=== PATIENT | female | born 1935 | race Caucasian/White ===

== ENCOUNTER 2017-12-09 10:40 | Day surgery (SDC) | payer MEDICARE ==
[~2017-12-09 10:40] MED LIST: Acetaminophen TAB* 325 MG PO PRN; Buffered Lidocaine 0.9% SYRIN* 5 ML/SYR SYRINGE INTRADERM ONE; Cyclopentolate 1% OPTH.SOL* 2 ML BTL ONE; Ketorolac 0.5% OPHTH (NF) 0.5 % 5 ML BTL ONE; Lidocaine 1% MPF* 2 ML VIAL ONE; Neomycin/Polymy/Dex OPHTH.OIN* 3.5 GM ONE; Phenylephr/Ketorolac 1%/0.3% OPH DROP BTL ONE; Phenylephrine 2.5% OPTH.SOL* 2 ML BTL ONE; Tetracaine 0.5% OPTH.SOL 4 ML* 1 DROP BTL ONE; Tropicamide 1% OPTH.SOL* BTL ONE; Trypan Blue 0.06% SOL* 0.5 ML BTL ONE
[2017-12-09] MEDS ORDERED: fentaNYL* 50 MCG/ML 2 ML VIAL (100 MCG VIAL) ONE (11:27)
[2017-12-09] MEDS ORDERED: Propofol* 10 MG/ML 20 ML BTL IV PUSH ONE (11:30)
[2017-12-09] MEDS ORDERED: Lidocaine 2% PF * 5 ML VIAL ONE (11:30)
[2017-12-09 13:10] VITALS: BP 145/85
[2017-12-09] MEDS ORDERED: Phenylephr/Ketorolac 1%/0.3% OPH DROP BTL ONE (14:26)
--- NOTE | 2017-12-10 01:07 | OP ---
DATE OF OPERATION: 12/09/17 - [facility] DATE OF : 35 SURGEON: Stanley Roberts MD STEREOTYPE CASTER: None. ANESTHESIA: Topical with intravenous sedation. PRE-OP DIAGNOSIS: Mature cataract, left eye. POST-OP DIAGNOSIS: Mature cataract, left eye. OPERATIVE PROCEDURE: Phacoemulsification and cataract extraction with posterior chamber intraocular lens implant, left eye. COMPLICATIONS: None. BLOOD LOSS: None. DESCRIPTION OF PROCEDURE: The patient was brought to the operating room and given a small amount of intra-venous sedation. A drop of tetracaine was placed on the surface of the eye. The patient was prepped and draped in the usual sterile fashion for ophthalmic surgery and attention was directed to the left eye where a speculum was placed. Here it was found that, despite appropriate preoperative eye drops, the pupil was not fully dilated. Furthermore, a fairly white dense cataract was noted. Omidria was placed into the irrigation solution. A paracentesis was created at the 5 o'clock position and 0.1 cc of 1 % preservative-free lidocaine was injected into the anterior chamber. This was followed by room air. This was then followed by VisionBlue dye. DisCoVisc was then introduced into the anterior chamber. The eye was digitally stabilized while a 2.75-mm keratome was used to create a triplanar clear corneal incision at the 3 o'clock position. A continuous curvilinear capsulorrhexis was created with a cystotome and Utrata forceps measuring approximately 4.5 mm in diameter and aided by the use of the VisionBlue dye. BSS on a cannula was used to hydrodissect the lens from the capsule. Phacoemulsification was performed in a [id number] technique to create four fragments. A fair amount of energy was needed to break the lens apart. Care was taken to avoid the corneal endothelium during the process. After the 4 fragments were removed, residual cortical material was removed with irrigation and aspiration. DisCoVisc was used to inflate the capsular bag. An AU00T0 14.5 diopter lens was folded and inserted into the capsular bag. Residual viscoelastic was removed with irrigation and aspiration. BSS on a cannula was used to hydrate the corneal stroma and seal the wound. At the end of the case, the pupil was round and measured approximately 4 mm. The eye pressure appeared normal. The wound appeared water tight and the lens was stable. The speculum was removed and topical Maxitrol ointment was placed on the surface of the eye. The eye was closed, patched and shielded and the patient was sent to the recovery room in stable condition with postoperative instructions and a followup appointment given. [id number]/[facility] #: [id number] MTDD
== END 2017-12-09 13:06 | disposition home or self-care (01) ==
LOC: OREAST 10:40
PROVIDERS: ATTEND Ophthalmology
DX: H25.12 Age-related nuclear cataract, left eye (principal); I10 Essential (primary) hypertension; D50.0 Iron deficiency anemia secondary to blood loss (chronic); R00.0 Tachycardia, unspecified; Z87.891 Personal history of nicotine dependence; K21.0 Gastro-esophageal reflux disease with esophagitis; F41.9 Anxiety disorder, unspecified
CPT/HCPCS: A9270-GY; C9447; J2704; J3010; V2632

== ENCOUNTER 2017-12-10 12:57 | Day surgery (SDC) | payer MEDICARE ==
[~2017-12-10 12:57] MED LIST changes: -Acetaminophen TAB* 325 MG PO PRN; -Buffered Lidocaine 0.9% SYRIN* 5 ML/SYR SYRINGE INTRADERM ONE; -Cyclopentolate 1% OPTH.SOL* 2 ML BTL ONE; -Ketorolac 0.5% OPHTH (NF) 0.5 % 5 ML BTL ONE; -Phenylephr/Ketorolac 1%/0.3% OPH DROP BTL ONE; -Phenylephrine 2.5% OPTH.SOL* 2 ML BTL ONE; -Tropicamide 1% OPTH.SOL* BTL ONE; -Trypan Blue 0.06% SOL* 0.5 ML BTL ONE
[2017-12-10] MEDS ORDERED: fentaNYL* 50 MCG/ML 2 ML VIAL (100 MCG VIAL) ONE (14:09)
[2017-12-10] MEDS ORDERED: Propofol* 10 MG/ML 20 ML BTL IV PUSH ONE (14:09)
[2017-12-10] MEDS ORDERED: Lidocaine 2% PF * 5 ML VIAL ONE (14:09)
[2017-12-10] MEDS ORDERED: Buffered Lidocaine 0.9% SYRIN* 5 ML/SYR SYRINGE INTRADERM ONE (14:27)
[2017-12-10 14:42] VITALS: BP 156/80
[2017-12-11] MEDS ORDERED: Acetaminophen TAB* 325 MG PO PRN (05:00)
--- NOTE | 2017-12-11 10:45 | OP ---
DATE OF OPERATION: 12/10/17 [facility] DATE OF : 35 SURGEON: Stanley Roberts MD EMERGENCY DEPARTMENT MANAGER: None. ANESTHESIA: Topical with intravenous sedation. PRE-OP DIAGNOSIS: Retained lens material anterior chamber, left eye. POST-OP DIAGNOSIS: Retained lens material anterior chamber, left eye. OPERATIVE PROCEDURE: Removal of retained lens material anterior chamber, left eye. COMPLICATIONS: None. ESTIMATED BLOOD LOSS: None. OPERATIVE FINDINGS: The patient had successful cataract surgery 1 day prior to today. She returned to the office this morning for routine postoperative check and it was found that there was a small chip of epinuclear material floating in the anterior chamber. After a long discussion with the patient, it was decided it would be more prudent to remove the chip of lens than to try and treat it medically. Thus, she returned to the surgical care billings at my request to meet me for that procedure. DESCRIPTION OF PROCEDURE: The patient was brought into the room and received a very small amount of intra-enous sedation. Her left eye was given a drop of tetracaine and then prepped and draped in the usual sterile fashion for ophthalmic surgery. Attention was directed to the left eye where a speculum was placed. Under the microscope, a small chip of retained lens material was noted floating in the anterior chamber. The original wound was easily opened with blunt dissection using the tip of the phaco probe. The phaco probe was inserted into the anterior chamber and irrigation, aspiration, plus a very small amount of phacoemulsification power was used to remove the chip of lens from the anterior chamber. The phaco probe was removed. Careful inspection under high magnification revealed no further chips of lens. BSS on a cannula was used to hydrate the corneal stroma and seal the wound. At the end of the case, the pupil was round and the lens was centered. The eye pressure was normal and the wound was watertight. A small amount of topical Maxitrol ointment was placed on the surface of the eye. A clear shield was placed over the eye and the patient was awakened uneventfully and sent to recovery room in stable condition with postoperative instructions and followup appointment given. [id number]/[facility] #: [id number] MTDD
== END 2017-12-10 14:58 | disposition home or self-care (01) ==
LOC: OREAST 12:57
PROVIDERS: ATTEND Ophthalmology
DX: H59.022 Cataract (lens) fragments in eye following cataract surgery, left eye (principal); I10 Essential (primary) hypertension; D50.0 Iron deficiency anemia secondary to blood loss (chronic); R00.0 Tachycardia, unspecified; Z87.891 Personal history of nicotine dependence; K21.9 Gastro-esophageal reflux disease without esophagitis; F41.9 Anxiety disorder, unspecified
CPT/HCPCS: A9270-GY; J2704; J3010

== ENCOUNTER → 2017-12-16 11:20 | Day surgery (SDC) | payer MEDICARE ==
[~2017-12-16 11:20] MED LIST changes: +Acetaminophen TAB* 325 MG PO PRN; +Buffered Lidocaine 0.9% SYRIN* 5 ML/SYR SYRINGE INTRADERM ONE; +Cyclopentolate 1% OPTH.SOL* 2 ML BTL ONE; +Ketorolac 0.5% OPHTH (NF) 0.5 % 5 ML BTL ONE; +Midazolam* 1 MG/ML 2 ML VIAL (2 MG) ONE; +Phenylephr/Ketorolac 1%/0.3% OPH DROP BTL ONE; +Phenylephrine 2.5% OPTH.SOL* 2 ML BTL ONE; +Tropicamide 1% OPTH.SOL* BTL ONE; +Trypan Blue 0.06% SOL* 0.5 ML BTL ONE; +fentaNYL* 50 MCG/ML 2 ML VIAL (100 MCG VIAL) ONE
[2017-12-16 13:55] VITALS: BP 136/83
--- NOTE | 2017-12-16 23:41 | OP ---
DATE OF OPERATION: 12/16/17 - [facility] DATE OF : 35 SURGEON: Stanley Roberts MD IAP DISPLAYS ANALYST: None ANESTHESIA: Topical with intravenous sedation. PRE-OP DIAGNOSES: Mature cataract right eye, posterior synechiae right eye. POST-OP DIAGNOSES: Mature cataract right eye, posterior synechiae right eye. OPERATIVE PROCEDURE: Phacoemulsification and cataract extraction with posterior chamber intraocular lens implant and synechiolysis, right eye. COMPLICATIONS: None. BLOOD LOSS: None. DESCRIPTION OF PROCEDURE: The patient was brought to the operating room and given a small amount of intra-venous sedation. A drop of tetracaine was placed into her right eye. The patient was prepped and draped in the usual sterile fashion for ophthalmic surgery and attention was directed to the right eye where a speculum was placed. The pupil was noted to be irregular with posterior synechiae along the nasal aspect. The lens was noted to be a completely mature dense tannish white color. A paracentesis was created at the 11 o'clock position and 0.1 cc of 1% preservative-free lidocaine was injected into the anterior chamber. This was followed by room air and then by Vision Blue dye. DisCoVisc was then injected into the anterior chamber. The cannula from the DisCoVisc instrument was used to break the synechiae that were attaching the iris to the anterior lens capsule. A triplanar clear corneal incision was created at the 9 o'clock position with a 2.75 mm keratome as the eye was digitally stabilized. A continuous curvilinear capsulorrhexis was created with a cystotome and Utrata forceps. This was facilitated with the use of the Vision Blue dye. A small amount of BSS was injected between the lens and the capsule to hydrodissect. Phacoemulsification was performed in a divide and conquer technique to create 4 fragments which were removed. This required a long duration and excessive phaco energy. Thus, several times during this aspect of the procedure, supplemental DisCoVisc was injected to coat the endothelium. Once the nuclear material was removed, very few cortical wisps remained and they were aspirated using irrigation and aspiration. The posterior capsule was polished, although a small plaque remained that could not be removed. DisCoVisc was used to inflate the capsular bag. An AU00T0 15.5 diopter lens was injected into the capsular bag. DisCoVisc was removed using irrigation and aspiration. BSS on a cannula was used to hydrate the corneal stroma and seal the wound. At the end of the case, the pupil was fairly round. The lens was centered and stable. The eye pressure appeared normal and the wound was watertight. The speculum was removed from the eye and topical Maxitrol ointment was placed on the surface of the eye. The eye was closed, patched and shielded and the patient was sent to the recovery room in stable condition with postoperative instructions and followup appointment given. [id number]/[facility] #: [id number] ANNA
== END | disposition home or self-care (01) ==
LOC: OREAST 11:20
PROVIDERS: ATTEND Ophthalmology
DX: H25.11 Age-related nuclear cataract, right eye (principal); H21.541 Posterior synechiae (iris), right eye; I10 Essential (primary) hypertension; D50.0 Iron deficiency anemia secondary to blood loss (chronic); R00.0 Tachycardia, unspecified; Z87.891 Personal history of nicotine dependence; F41.9 Anxiety disorder, unspecified
CPT/HCPCS: A9270-GY; C9447; J2250; J3010; V2632

== ENCOUNTER → 2018-07-18 13:39 | Inpatient (IN) | payer MEDICARE ==
--- NOTE | 2017-03-24 10:22 | HP ---
HISTORY AND PHYSICAL: DATE OF SURGERY/ADMISSION: 04/09/17 ATTENDING PROVIDER: Dr. Becerril (dictated by NORMA Patterson) PROCEDURE: Left total hip arthroplasty. CHIEF COMPLAINT: Left hip pain. HISTORY OF PRESENT ILLNESS: Ms. Gonzales is an 81-year-old female who reports falling last summer in April and having some left hip pain. She was seen in our clinic in June and told she had a fracture of her left femoral head. Due to some health concerns, she was unable to have surgery at that time and now that her health is improving, she would like to proceed with surgery of her left hip. She continues to have significant daily pain which is affecting her activities of daily living. PAST MEDICAL HISTORY: 1. Hypertension. 2. Dysphagia. 3. Unknown eating disorder. PAST SURGICAL HISTORY: 1. Hysterectomy. 2. Appendectomy. 3. Tonsillectomy. 4. Adenoidectomy. CURRENT MEDICATIONS: 1. Enalapril 10 mg once a day. 2. Aspirin 81 mg once a day. 3. Multivitamin. 4. Colace. ALLERGIES: None. FAMILY HISTORY: Hypertension, heart disease, breast cancer, prostate cancer. SOCIAL HISTORY: She is an 81-year-old female. She lives alone. She does not smoke or use drugs. REVIEW OF SYSTEMS: A complete 14-point review of systems was reviewed with the patient, is positive for dysphagia and some occasional shortness of breath. She denies history of DVT, PE, or anesthesia problems. PHYSICAL EXAMINATION GENERAL: She is well developed, well nourished in no acute distress. VITAL SIGNS: She stands 5 feet 9 inches tall, weighs 125 pounds. Her blood pressure is 117/69. Her heart rate is 70. HEENT: Normocephalic, atraumatic. NECK: Supple. No palpable lymph nodes. PULMONARY: The lungs are clear to auscultation bilaterally. CARDIO: Regular rate and rhythm. No murmurs, gallops or rubs. ABDOMEN: Soft, nontender, nondistended. NEUROLOGICAL: She is alert and oriented x3. Cranial nerves II through XII are intact. MUSCULOSKELETAL: Left lower extremity: The skin is intact. She has severely limited internal and external rotation of her left hip. She walks with an antalgic type gait favoring her left leg. Her lower extremity muscle group strengths are intact at 5/5. She has 2+ dorsalis pedis pulses and intact sensation. ASSESSMENT AND PLAN: Ms. Gonzales is an 81-year-old female with complaints of severe left hip pain. She has elected to proceed with a left total hip arthroplasty which is scheduled on 04/09/[address] Becerril discussed the risks and benefits of the surgery at today's visit and all of her questions were answered. She will follow up with Dr. Becerril 2 weeks after the surgery. NORMA PATTERSON [id number]/[facility] #: [id number] MTDSyd
--- NOTE | 2018-07-01 14:29 | HP ---
HISTORY AND PHYSICAL: DATE OF ADMISSION/SURGERY: 07/14/18 DATE OF OFFICE VISIT: 07/01/18 SURGEON: Stefani Becerril MD * (DICTATED BY NORMA PATTERSON) PROCEDURE: Left total hip arthroplasty. CHIEF COMPLAINT: Left hip pain. HISTORY OF PRESENT ILLNESS: Ms. Gonzales is an 82-year-old female with end-stage osteoarthritis of the left hip. She has failed conservative management and elected to proceed with a left total hip arthroplasty, which is scheduled for . PAST MEDICAL HISTORY: Esophagitis, hypertension, depression, anxiety, OCD, Aflutter, supraventricular tachycardia, and borderline aortic stenosis. PAST SURGICAL HISTORY: Hysterectomy, appendectomy, tonsillectomy, adenoidectomy , and a lymph node removal. CURRENT MEDICATIONS: 1. Famotidine 10 mg daily. 2. Iron 325 mg daily. 3. Enalapril 20 mg a day. 4. Aspirin 81 mg daily. 5. Dulcolax. 6. Toprol 25 mg half a tab daily. 7. Vitamin B complex. 8. Vitamin D3. ALLERGIES: To ANTI-INFLAMMATORIES. FAMILY HISTORY: Heart disease, breast and prostate cancer. SOCIAL HISTORY: She is an 82-year-old female. She lives alone. She does not smoke or use drugs. She uses occasional alcohol. REVIEW OF SYSTEMS: A complete 14-point review of systems was reviewed with the patient. It was all negative or noncontributory. She denies history of DVT, PE , hepatitis, HIV, or anesthesia problems. PHYSICAL EXAMINATION GENERAL: She is well developed, well nourished, in no acute distress. VITAL SIGNS: She stands 5 feet 8 inches tall, weighs 138 pounds. Her blood pressure 132/80 and heart rate 67. HEENT: Normocephalic, atraumatic. NECK: Supple. No palpable lymph nodes. PULMONARY: The lungs are clear to auscultation bilaterally. CARDIO: Regular rate and rhythm. Strong S1, S2. ABDOMEN: Soft, nontender, and nondistended. NEUROLOGICAL: She is alert and oriented x3. MUSCULOSKELETAL: Left lower extremity: The skin is intact. There are no open wounds or abrasions. She has decreased internal and external rotation of the left hip. She walks with an antalgic-type gait favoring her left hip and she has intact sensation, 2+ dorsalis pedis pulses, and her lower extremity muscle group strengths are intact at 5/5. ASSESSMENT AND PLAN: Ms. Gonzales is an 82-year-old female with end-stage osteoarthritis of the left hip. She has failed conservative treatment and elected to proceed with a left total hip arthroplasty, which is scheduled for with Dr. Becerril. Dr. Becerril discussed the risks and benefits of the surgery at today's visit and all of her questions were answered. She will follow up with Dr. Becerril 2 weeks after the surgery. NORMA PATTERSON [id number]/[facility] #: [id number] ANNA
--- OUTSIDE RECORDS SUMMARY | 2018-07-14 12:49 | XMS REPORT ---
:1935 External Reference #:[id number] Author Organization [facility] Address [address] [facility] [place] [address] [place] [address] Phone [phone] Care Team Providers Name Role Phone Winston Meade DO Primary Care Physician Unavailable Payers Type Date Identification Numbers Payment Provider Subscriber Medicare Primary Policy Number: [id number] Medicare Steph Gonzales PayID: [id number] [facility] [address] [place] [address] Problems Date Description Provider Status Onset: 07/05/2016 Closed fracture of neck of femur Guilherme Nix MD Active Onset: 03/21/2017 Localized, 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 Family History Date Family Member(s) Problem(s) Comments General Unknown General Hypertension General Heart disease General Breast Cancer General Prostate Cancer Social History Type Date Description Comments Lives With Alone Occupation Retired ETOH Use Denies alcohol use Smoking Patient has never smoked Recreational Drug Use Denies Drug Use Daily Caffeine Consumes on average 2 cups of regular coffee per day Exercise Type/Frequency Does not exercise Allergies, Adverse Reactions, Alerts Date Description Reaction Status Severity Comments 03/31/2017 Anti-Inflammatory upper GI bleed,erosive active esophag 07/05/2016 NKDA inactive Medications Medication Date Status Form Strength Qnty SIG Indications Ordering Provider Oxycodone-Ac 07/01 Active Tablets 5-325mg 90tab 1-2 tabs by Stefani etamin s mouth every 4-6 Jone, hours as needed M.D. for pain Famotidine 0000 Active Tablets 10mg 1 tab daily Unknown /0000 Iron 00/00 Active Tablets 325(65Fe) 1 by mouth every Unknown /0000 mg day( Pt told to restart tomorrow 04/03/[address] Ray) Ibuprofen 00 Active Tablets 200mg as needed, never Unknown /0000 more than 1 in 24 hours Tums 00 Active Chewtabs 500mg 2 chew tablets Unknown /0000 daily as needed Enalapril Active Tablets 5mg 2 tablet po Flor, Maleate /0000 daily PM MD Tyree Tylenol 8 Active Tablets 650mg 1 by mouth every Unknown Hour /0000 ER 4 hours as Arthritis needed Pain Aspir-81 Active Tablets 81mg 1 by mouth every Unknown /0000 DR day Docusate Active Unknown Sodium /0000 B Complex Active Unknown /0000 Vitamin D3 Active Unknown /0000 Warfarin 07/05 Hx Tablets 2mg 45tab 1 by mouth daily Sailaja Sodium s postoperatively Smith, - or as directed M.D. 06/04 by vns. do not /2017 take this medication prior to surgery. ( PT Does Not Take) Oxycodone-Ac 07/05 Hx Tablets 5-325mg 90tab 1-2 tab by mouth Sailaja etaminophen s every 4-6 hours Smith, - as needed pain M.D. 06/04 Colace 07/05 Hx Capsules 100mg 90cap 1 tab by mouth Sailaja /2015 s up to three Smith, - times a day as M.D. 06/04 needed constipation Enalapril Hx Tablets 20mg 1 by mouth every Unknown Maleate /0000 day - 04/01 Carafate Hx Tablets 1gm 1 by mouth four Unknown /0000 times a day ( pt - stop taking 2 06/04 months ago January) Aspir-Low Hx Tablets 81mg 1 by mouth every Unknown /0000 DR day PM (on hold - for last 2 weeks 04/2304/24/17) Multi 00/ Hx Tablets 1 by mouth every Unknown Vitamin /0000 day - 06/04 Toprol XL Hx Tablets 25mg 1/2 by mouth Unknown /0000 ER 24HR every day - 06/28 Medications Administered in Office Medication Date Status Form Strength Qnty SIG Indications Ordering Provider Inj, 06/13/ Administered Injection Adrien SKatherine Regadenoson, 0.1 2016 DO [place] MG FACC Aminophylline 06/13/ Administered Injection Adrien SKatherine 2016 DO [place]o FACC Technetium TC 06/13/ Administered Injection Adrien S. 99M Tetrofosmin, 2016 DO [place] Per Unit Dose Up FACC To 40 Millicuries Vital Signs Date Vital Result Comment 07/01/2018 Height 68 inches 5'8" Weight 138.00 lb Heart Rate 67 /min BP Systolic 132 mmHg BP Diastolic 80 mmHg Body Temperature 96.7 F BMI (Body Mass Index) 21.0 kg/m2 06/29/2018 Height 69 inches 5'9" Weight 114.50 lb Heart Rate 68 /min BP Systolic Sitting 130 mmHg lue reg cuff BP Diastolic Sitting 80 mmHg lue reg cuff BP Systolic Standing 130 mmHg BP Diastolic Standing 80 mmHg Respiratory Rate 16 /min BMI (Body Mass Index) 16.9 kg/m2 Ejection Fraction 60-65% 04/21/2017 echo 06/05/2018 Height 69 inches 5'9" Weight 148.00 lb Heart Rate 72 /min BP Systolic 126 mmHg BP Diastolic 74 mmHg BMI (Body Mass Index) 21.9 kg/m2 01/23/2018 Height 63 inches 5'3" Heart Rate 64 /min BP Systolic 128 mmHg BP Diastolic 60 mmHg Respiratory Rate 16 /min Body Temperature 96.8 F Pain Level 2 04/24/2017 Height 63 inches 5'3" Weight 129.00 lb with shoes Heart Rate 66 /min BP Systolic Sitting 132 mmHg Rue reg cuff BP Diastolic Sitting 76 mmHg Rue reg cuff Respiratory Rate 16 /min BMI (Body Mass Index) 22.8 kg/m2 Ejection Fraction 60-65% 04/21/2017-echo 04/02/2017 Height 63 inches 5'3" Weight 126.00 lb without shoes Heart Rate 82 /min BP Systolic 118 mmHg Rue reg cuff BP Diastolic 60 mmHg Rue reg cuff BP Systolic Sitting 110 mmHg Lue reg cuff BP Diastolic Sitting 70 mmHg Lue reg cuff Respiratory Rate 16 /min BMI (Body Mass Index) 22.3 kg/m2 03/21/2017 Height 69 inches 5'9" Weight 125.00 lb BP Systolic 117 mmHg BP Diastolic 69 mmHg Respiratory Rate 16 /min Body Temperature 97.8 F Pain Level 5 BMI (Body Mass Index) 18.5 kg/m2 07/05/2016 Height 69 inches 5'9" Weight 160.00 lb Heart Rate 60 /min Respiratory Rate 16 /min BMI (Body Mass Index) 23.6 kg/m2 Results Description No Information Procedures Date CPT Code Description Status 06/29/2018 00000 EKG Tracing & Interpretation Completed 06/13/2017 60897 Stress Test Completed 06/13/2017 17603 Myocardial Perfusion Imaging Tomographic (Spect) Completed Multiple Studies 04/21/2017 48938 ECHO Transthoracic, Real-Time 2D With Doppler And Color Completed Flow 04/02/2017 46944 EKG Tracing & Interpretation Completed 06/10/2016 15268 EKG, Interpretation Only Completed Encounters Type Date Location Provider CPT E/M Dx Office Visit 06/05/2018 [facility] M.D. 49848 M16.52 11:30a [facility] M25.552 Office Visit 01/23/2018 1:00p [facility] M.D. 05528 M16.52 C.[facility] M25.552 Office Visit 04/24/2017 2:00p [facility], 35888 Z01.810 [facility] DO [facility] Office Visit 04/02/2017 3:00p [facility], 35354 Z01.810 [facility] M16.52 D64.9 R94.31 R07.9 R06.02 I10 I11.9 R01.1 Office Visit 03/21/2017 1:15p [facility] M.D. 00504 M25.552 [facility] M16.52 S72.002D Office Visit 09/20/2016 4:19p [facility], Rashid Streeter, 36929 K20.9 Hospitalists Pushpa I10 R13.10 Office Visit 09/18/2016 4:16p [facility], Saturnino Larson, 25189 K20.9 Hospitalists N.P. I10 R13.10 Office Visit 07/05/2016 1:00p [facility] [place] [address] S72.002A C.M.A. Office Visit 06/12/2016 2:47p [facility] Sandrine Mireles, 57810 K92.2 Assoc, [facility] D50.0 I10 Office Visit 06/11/2016 2:46p [facility], Alon Burtmelissa, 39251 K92.2 Hospitalists [facility]pa D50.0 I10 Office Visit 06/10/2016 2:46p [facility] [place], [address] K92.2 Assoc, Hospitalists [facility]pa R94.31 D50.0 I10 Plan of Care Future Appointment(s):07/14/2018 3:30 pm - [facility] Bec[facility]il [facility]07/01/2018 - Stefani Becerril M.D.M25.552 Pain in left hipFollow up:Follow up: 2 weeks after fqqkogrB55.12 Unilateral primary osteoarthritis, left hip
--- NOTE | 2018-07-14 17:53 | RAD ---
INDICATION: Left hip replacement TECHNIQUE: 2 intraoperative radiographs of the left hip were acquired. FINDINGS: Radiographic images depict an anatomically aligned left femoral shaft prosthesis and acetabular prosthesis. Visualized bones are intact. IMPRESSION: Anatomic alignment of left hip prosthesis.
--- NOTE | 2018-07-14 20:25 | PN ---
Hospitalist Progress Note Date of Service: 07/14/18 called to bedside for 13 beat run of VT, patient with no symptoms. Pt denies chest pain or sob. Admits to nausea. Denies lightheadedness. No syncope. Bp stable. EKG showing sinus david no st elevation or depression. PVC noted. Plan check trops, echo, cbc cmp mag, tsh, icu follow closely.
[2018-07-14 20:37] LABS: ABS Basophils 0 10^3/ul (0-0.2); ABS Eosinophils 0 10^3/ul (0-0.6); ABS Lymphocytes 0.5 10^3/ul (1.0-4.8); ABS Monocytes 0.3 10^3/ul (0-0.8); ABS Neutrophils 13.1 10^3/ul (1.5-7.7); ABS Nucleated RBC 0 10^3/ul; Eosinophil % 0.2 % (0-6); Hematocrit 33 % (35-47); Lymphocyte % 3.5 % (25-47); Mean Corpuscular HGB Conc 33 g/dl (31-36); Mean Corpuscular Hemoglobin 28 pg (27-31); Mean Corpuscular Volume 84 fL (80-97); Mean Platelet Volume 7.5 um3 (7.4-10.4); Nucleated Red Blood Cells % 0; Platelet Count 284 10^3/ul (150-450); Red Blood Count 3.97 10^6/ul (4.00-5.40); Red Cell Distribution Width 14 % (10.5-15); White Blood Count 13.9 10^3/ul (3.5-10.8)
[2018-07-14 20:56] LABS: EGFR Non-African American 69.7 (>60)
--- NOTE | 2018-07-14 22:07 | CONS ---
CC: Dr. Meade; Dr. Becerril * CONSULTATION REPORT: DATE OF CONSULT: 07/14/18 PRIMARY CARE PROVIDER: Dr. Meade. ATTENDING PHYSICIAN WHILE IN THE HOSPITAL: Richy Calvert MD (report dictated by Micah Larson NP). REASON FOR MEDICAL CONSULTATION: Evaluation of medical management and comorbid medical problems. HISTORY OF PRESENTING ILLNESS: Ms. Gonzales is an 82-year-old female patient who carries a history of GERD and esophagitis. She does have an allergy to CARAFATE and PRILOSEC, history of hypertension, depression, anxiety, OCD, A- flutter, atrial tachycardia, SVT, and a history of aortic stenosis. She is coming into the orthopedic services today. She was evaluated in the operation setting for left hip pain treatment, trying conservative management and had been failing. The left hip pain had been affecting her activities of daily living. She sought the care of Dr. Becerril and underwent a left total hip. She was evaluated in the PACU. She is denying any chest pain. She says she does have some discomfort in her left hip. She denies any chest pain or shortness of breath. Denies having any abdominal pain. She states she does not feel nauseous. Denies any lightheadedness and denies feeling the sensation that she is going to pass out. Because of her medical complexity, we were asked to evaluate in consult. PAST MEDICAL HISTORY: Significant for: 1. Esophagitis. 2. Hypertension. 3. Depression. 4. Anxiety. 5. OCD. 6. A-flutter. 7. History of atrial tachycardia. 8. SVT. 9. Aortic stenosis, which was borderline. PAST SURGICAL HISTORY: 1. The patient has had a hysterectomy. 2. Appendectomy. 3. Tonsillectomy and adenoidectomy. 4. Lymph node removal. 5. She has had a left total hip replacement done today. HOME MEDICATIONS: According to the patient includes: 1. Vitamin B12 of 1 tablet daily. 2. Ibuprofen 200 mg every 6 hours as needed. 3. Ferrous sulfate 325 mg p.o. b.i.d. 4. Pepcid 40 mg p.o. q.a.m. 5. Vasotec 10 mg p.o. b.i.d. 6. Colace 100 mg p.o. at bedtime. 7. Tylenol 500 mg every 6 hours as needed. Please note she was taking metoprolol, but she had stopped that due to side effects secondary to dizziness. She stopped that according to the patient several weeks ago. ALLERGIES TO MEDICATIONS: Include: 1. PRILOSEC. 2. CARAFATE. FAMILY HISTORY: Mother had a history of breast cancer. Father had a history of prostate cancer. SOCIAL HISTORY: The patient is a nonsmoker. She does not drink alcohol. She lives alone. Surrogate decision maker is her brother. REVIEW OF SYSTEMS: There is no documented fever. She denies having any significant weight change. There was no double vision. She denies having any ear discharge. There was no rhinorrhea. There was no sore throat. There was no thyroid enlargement. She denied having any chest pain. There was no orthopnea. There was no nocturnal dyspnea. She denied having any abdominal pain. There was no nausea, no vomiting. There was no dysuria. There was no frequency. There was no seizure. No loss of consciousness. No pruritus and no skin ulcerations. Review of 14 systems completed, all others negative. PHYSICAL EXAM: Vital Signs: Initially her blood pressure was 184/89, pulse 68 , respirations 18, O2 sat 96%, temperature 98.6 but her blood pressure now is 176/76. General: At this time, Ms. Gonzales is an 82-year-old female patient, she is sitting in the PACU bed. She appears to be well nourished, well developed. She does not appear to be in any acute distress. HEENT: Head is atraumatic and normocephalic. Eyes: EOMs are intact. Sclerae are anicteric and not pale. Neck was supple. Throat: Oral mucosa appears to be moist. No oropharyngeal erythema. Heart: Sounds S1, S2. Regular rate and rhythm. No murmurs, rubs, or gallops. Lungs: Clear to auscultation bilaterally. No wheezes, rales, or rhonchi. Abdomen: Soft, it was flat, it was nontender. Bowel sounds were hypoactive but present. Extremities: Pulses were 2+ throughout. She is unable to move the lower extremities as they are in a hip adductor pillow but distal CSM checks are intact. Again in the upper extremities , she had 5/5 strength. Her skin is grossly intact with the exception she does have an incision to her left hip. Neurologically, she is awake, alert, she is oriented x3. She had no gross focal deficits. DIAGNOSTIC STUDIES/LAB DATA: Preoperative labs: WBC of 8.1, RBC of 4.45, hemoglobin 12.4, hematocrit 37, platelet count 268,000. INR 0.92, PTT of 28.9. Sodium 137, potassium 4.3, chloride 103, bicarb 30, BUN 19, creatinine of 0.83, glucose 89. Calcium 8.9. Preop urine showed 2+ leukocyte esterase, 3+ wbc's, 3 + rbc's. Repeat microbiology was negative, initially was positive for E. coli. She did have an outpatient EKG, which showed a normal sinus rhythm, LVH, rate of 65, no ST elevations or T-wave inversions were noted. She had a preop chest x-ray, which showed hyperinflated lung chawla without evidence of acute cardiopulmonary disease. Old medical records were reviewed. ASSESSMENT AND PLAN: Ms. Gonzales is an 82-year-old female patient coming into the orthopedic services today for an elective left total hip. We were asked to evaluate and consult. Recommendations at this point are: 1. Status post left total hip. I will defer the management to Dr. Becerril and her team. 2. History of esophagitis. Follow up with her primary care physician and continue Pepcid. 3. History of hypertension. I do note that her postoperative blood pressures have been running on the high side. I have ordered p.r.n. hydralazine. We will continue her enalapril. Continue to follow. 4. History of supraventricular tachycardia, atrial flutter, atrial tachycardia. We will be on the lookout for this. If we need to, we can start a calcium channel keny. She did not tolerate beta-blockers previously. 5. History of anxiety and depression. Continue with supportive care. 6. Obsessive compulsive disorder. Continue with supportive care. It is stable. 7. History of borderline aortic stenosis. Follow up with primary care physician and Cardiology. 8. DVT prophylaxis. Defer to the primary team. 9. Code status. Full code. 10. Fluids, electrolytes, and nutrition. She can have a regular diet. TIME SPENT: On the consult was 60 minutes; greater than half the time spent face- to-face with the patient obtaining history and physical, the other half time was spent going over the plan of care with the patient and implementing plan of care. I did discuss the plan of care with my attending, Dr. Calvert; he is in agreement. MICAH LARSON NP [id number]/[facility] #: [id number] ANNA
[2018-07-14] MEDS: Enalapril TAB* 5 MG PO SCH (22:10)
[2018-07-14] MEDS: Docusate CAP* 100 MG PO SCH (22:10)
[2018-07-14] MEDS: Magnesium Hydroxide LIQ* 30 ML UDC PO SCH (22:10)
[2018-07-14] MEDS: Ferrous Sulfate TAB* 325 MG PO SCH (22:11)
--- NOTE | 2018-07-14 22:30 | RAD ---
INDICATION: Status post left total hip arthroplasty TECHNIQUE: 2 views of the left hip and a single AP view of the pelvis were obtained. FINDINGS: The recently installed left hip prosthesis is anatomically aligned in the AP and lateral projection. Remaining visualized bones are intact and appropriately aligned. IMPRESSION: Anatomic alignment of left hip prosthesis.
[2018-07-15] MEDS: ceFAZolin 1 GM in Dextrose (*) 1 GM/50 ML BAG IVPB SCH ×3 (00:25→16:47)
[2018-07-15 05:38] LABS: Hematocrit 32 % (35-47); Hemoglobin 10.8 g/dl (12.0-16.0); Mean Platelet Volume 7.7 um3 (7.4-10.4); Platelet Count 272 10^3/ul (150-450)
[2018-07-15 05:49] LABS: EGFR Non-African American 78.8 (>60)
[2018-07-15 05:52] LABS: INR 0.93 (0.77-1.02)
[2018-07-15] MEDS: Acetaminophen TAB* 325 MG PO SCH ×3 (06:20→21:26)
--- NOTE | 2018-07-15 07:21 | PN ---
Progress Note - Progress Note Date of Service: 07/15/18 SOAP: Subjective: Pt. is alert, denies chest pain or SOB. She reports minimal pain in left hip. Vtach on telemetry overnight - moved to ICU from PACU and has had a bolus of amiodarone. Objective: Vital Signs: Temp Pulse Resp BP Pulse Ox 97.2 F 54 14 125/65 98 07/15/18 04:00 07/15/18 07:00 07/15/18 07:00 07/15/18 07:00 07/15/18 07:00 Laboratory Results - last 24 hr 07/14/18 07/14/18 07/14/18 20:31 20:31 23:52 WBC 13.9 H RBC 3.97 L Hgb 11.0 L Hct 33 L MCV 84 MCH 28 MCHC 33 RDW 14 Plt Count 284 MPV 7.5 Neut % (Auto) 93.6 H Lymph % (Auto) 3.5 L [place] % (Auto) 2.4 Eos % (Auto) 0.2 Baso % (Auto) 0.3 Absolute Neuts (auto) 13.1 H Absolute Lymphs (auto) 0.5 L Absolute Monos (auto) 0.3 Absolute Eos (auto) 0 Absolute Basos (auto) 0 Absolute Nucleated RBC 0 Nucleated RBC % 0 INR (Anticoag Therapy) Sodium 135 Potassium 3.8 Chloride 100 L Carbon Dioxide 30 Anion Gap 5 BUN 14 Creatinine 0.79 Est GFR ( Amer) 84.3 Est GFR (Non-Af Amer) 69.7 BUN/Creatinine Ratio 17.7 Glucose 124 H Calcium 8.5 L Magnesium 1.6 L Total Bilirubin 0.40 AST 24 ALT 13 Alkaline Phosphatase 67 Troponin I 0.01 0.01 Total Protein 6.1 L Albumin 3.2 Globulin 2.9 Albumin/Globulin Ratio 1.1 TSH 6.58 H Free T4 0.91 Thyroxine (T4) 9.04 Free T3 2.70 Total T3 74 L 07/15/18 07/15/18 07/15/18 04:53 04:53 05:19 WBC RBC Hgb 10.8 L Hct 32 L MCV MCH MCHC RDW Plt Count 272 MPV 7.7 Neut % (Auto) Lymph % (Auto) [place] % (Auto) Eos % (Auto) Baso % (Auto) Absolute Neuts (auto) Absolute Lymphs (auto) Absolute Monos (auto) Absolute Eos (auto) Absolute Basos (auto) Absolute Nucleated RBC Nucleated RBC % INR (Anticoag Therapy) 0.93 Sodium 133 L Potassium 5.0 Chloride 101 Carbon Dioxide 25 Anion Gap 7 BUN 15 Creatinine 0.71 Est GFR ( Amer) 95.4 Est GFR (Non-Af Amer) 78.8 BUN/Creatinine Ratio 21.1 H Glucose 113 H Calcium 8.4 L Magnesium 2.7 Total Bilirubin AST ALT Alkaline Phosphatase Troponin I 0.01 Total Protein Albumin Globulin Albumin/Globulin Ratio TSH Free T4 Thyroxine (T4) Free T3 Total T3 Assessment: 82 yo F pod 1 s/p LTHA Plan: xrays satisfactory Postop vtach - 1 dose amiodarone. HR 50's, no symptoms this AM. Appreciate ICU /hospitalist team management. Labs show leukocytosis with a left shift - will order UA PT/OT today - wbat LLE Coumadin with lovenox bridge.
[2018-07-15] MEDS: Magnesium Hydroxide LIQ* 30 ML UDC PO SCH ×2 (08:18→21:26)
[2018-07-15] MEDS: Enalapril TAB* 5 MG PO SCH ×2 (08:18→21:20)
[2018-07-15] MEDS: Famotidine TAB* 20 MG PO SCH (08:18)
[2018-07-15] MEDS: Ferrous Sulfate TAB* 325 MG PO SCH ×2 (08:18→21:20)
[2018-07-15] MEDS: Docusate CAP* 100 MG PO SCH ×2 (08:53→21:25)
--- NOTE | 2018-07-15 10:11 | OP ---
DATE OF OPERATION: 07/14/18 - ROOM #349 DATE OF : 35 ATTENDING SURGEON: Stefani Becerril MD STAKES PLAYER: NORMA [place]. Mr. Tavares did help throughout the procedure with preparation of the leg, wound retraction, manipulation of the hip, and wound closure. ANESTHESIOLOGIST: Dr. Altamirano. ANESTHESIA: General. 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 OPERATIVE PROCEDURE: Left total hip arthroplasty. BRIEF HISTORY/INDICATIONS: Ms. Gonzales is an 82-year-old female with a complex history of left hip pain. She initially had a fall with the femoral neck fracture. She left this untreated, although total hip arthroplasty was recommended. She is noncompliant with medical treatment recommendations. 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 She continued to walk on this hip and developed severe bony deformity of the acetabulum from abnormal wear pattern. She finally elected to undergo left total hip arthroplasty. Her radiographs and CT scan showed extensive loss of bone around the acetabulum. I counseled her preoperatively that she was at risk of intraoperative fracture and failure to place primary implants. Informed consent was obtained from the patient. She understood the risks of surgery included, but were not limited to, bleeding, infection, damage to nearby structures, continued pain, need for further surgery , intraoperative fracture, nerve palsy, hardware failure, loosening, dislocation , leg length discrepancy, stroke, heart attack, blood clot, and . She wished to proceed. INTRAOPERATIVE FINDINGS: Intraoperatively, the patient was noted to have dramatic deformity of her bone. Femoral head was essentially worn away. She had osteopenia. Acetabular bone stock was extremely abnormal with abnormal wear along the entire medial wall, superior wall, and posterior wall. The bone was thin and osteopenic with significant osteophyte formation. The patient was also noted to have severe soft tissue contracture around the hip joint including the capsule. COMPLICATIONS: None. ESTIMATED BLOOD LOSS: 300 cc. SPECIMEN: Femoral head and acetabular reaming sent to pathology. HARDWARE: This is uncemented Leatha total hip arthroplasty hardware. For the cup, a Trident Tritanium hemispherical revision shell 56E, 3 screws were used, length of 20 mm, 20 mm, and 15 mm. For the polyethylene, a Trident X3 0 degree polyethylene insert 40E. For the stem, an Accolade TMZF size 4 with a 132- degree neck. For the head, a LFIT anatomic V40 femoral head 40, -4. DESCRIPTION OF PROCEDURE: Ms. Gonzales was identified in the preanesthesia unit. Her left lower extremity was marked as the correct operative side. Informed consent was signed and placed in the chart. The patient was taken to the operating room and placed under general anesthesia. A Ferraro catheter was placed. The patient was placed in the right lateral decubitus position on the pegboard. All bony prominences were well padded. Left lower extremity was prepped and draped in the usual sterile fashion. Preop time-out was made to correctly identify the patient's side and site. Appropriate perioperative antibiotics were given within 1 hour of incision. A standard 12 cm posterior hip incision was made with a 10-blade and carried down to the lateral fascia. Lateral fascial layer was incised in line with the skin incision. The piriformis and conjoint tendons were identified and elevated off the posterolateral femur using electrocautery. These were tagged with #5 Ethibond. Next, electrocautery was used to make capsular flap and this was tagged with #5 Ethibond. The soft tissue was noted to be short and contracted. The hip was carefully dislocated. The majority of the femoral head was missing from chronic wear and avascular necrosis with subchondral flaps. Oscillating saw was used to make the correct femoral neck cut. The femur was retracted anteriorly. After appropriate placement of retractors, the acetabulum was well visualized. There was extreme bony deformity without the normal landmarks. There was excessive wear allowing the medial wall and superior wall as well as the posterior wall. There was significant loss of bone stock along the superior weightbearing dome and posterior wall. Long handled knife was used to sharply remove any remaining labrum from the acetabular rim. A large amount of inflammatory tissue was also removed to improve visualization. The acetabulum was then sequentially reamed up to a size 55. A 55 reamer obtained some peripheral rim fit as well as subchondral bleeding bone bed. A 55 trial had satisfactory fit. Final implant chosen was a Trident Tritanium revision cup 56E. This was carefully impacted into the acetabulum. There was good stability with appropriate anteversion and abduction angle. Three screws were placed in the superoposterior quadrant for extra stability. Next, a Trident X3 0 degree liner 40E was chosen. This was impacted into the acetabular cup. Stability of the insert was checked and rechecked and noted to be stable. Attention was next turned to preparation of the proximal femur. A canal finder was used to enter the proximal femur. Extensive osteopenia was noted. The femur was sequentially broached up to a size 4. Size 4 broach had good fit, stability, and appropriate anteversion. A 40 -4 head trial was chosen with a 132 neck trial. Lesser troch to center of the femoral head measured 52 mm. The hip was carefully reduced. There was certainly some difficulty with reduction due to the chronic contracture of soft tissue. The leg was brought out to length. There was some increased tension when attempting full extension due to the chronic contracture. The hip was stable in all positions. The hip was carefully dislocated. All trials were removed. Final implant chosen was an Accolade TMZF size 4 with a 132-degree neck angle. This was impacted into the femoral canal without difficulty. The stem was stable with appropriate anteversion. A 40 -4 LFIT anatomically 40 femoral head was chosen. This was impacted out to femoral neck. The hip was reduced and taken through range of motion. The hip was stable in all positions. There were good soft tissue tension and appropriate leg lengths. Once again, the increased tension from chronic contracture was noted and accepted. The hip was copiously irrigated with sterile saline. Previously tagged capsule and tendons were reapproximated to the posterior lateral femur through two trochanteric drill holes. The lateral fascial layer was closed using interrupted #1 Vicryl. The rest of the incision was closed in a layered fashion using 0 and 2-0 Vicryls. Skin was closed using running 3-0 Monocryl and Dermabond. Sterile Adaptic 4x4s and paper tape was used to cover the incision. The patient's anesthesia was reversed without difficulty. Leg lengths were deemed to be equal. She was taken to the PACU in stable condition. Intended weightbearing will be weightbearing as tolerated. Intended DVT prophylaxis will be Coumadin with a Lovenox bridge. [id number]/[facility] #: [id number] [facility]
--- NOTE | 2018-07-15 10:37 | ECHO ---
Patient: JIMBO OSEGUERA [facility] Rec#: [id number] : 1935 Date: 07/15/2018 Age: 82y Height: 175 cm / 68.9 in Weight: 53.07 kg / 117.0 lbs Sex: F BSA: 1.64 Room#: [id number] Admit Date#: 07/14/2018 Type: Inpatient Referring: Micah Larson NP Reading: Elsa Mendoza MD Steam Trap Man: Angella Boyle RDCS CC: Winston Meade MD Transthoracic Echocardiogram Indication: Abnormal EKG, VT BP: 137/69 HR: 53 Rhythm: Bradycardia Findings History: HTN, a-flutter, SVT, borderline . Technical Comments: The study quality is fair. Completed at 1025. Left Ventricle: The left ventricular chamber size is normal. Moderate concentric left ventricular hypertrophy is observed. Basal interventricular septum shows moderate thickening. Global left ventricular wall motion and contractility are within normal limits. There is normal left ventricular systolic function. The estimated ejection fraction is 55-60%. Abnormal left ventricular diastolic function is observed. Abnormal left ventricular diastolic filling is observed, consistent with impaired relaxation. Left Atrium: The left atrium is moderate to severely dilated. Right Ventricle: Moderator Band present. The right ventricular cavity size is normal. The right ventricular global systolic function is normal. Right Atrium: The right atrial cavity size is normal. Aortic Valve: The aortic valve is trileaflet. There is moderate thickening of the right coronary cusp. Systolic excursion of the aortic valve cusps is reduced. There is a trace of aortic regurgitation. There is mild aortic stenosis. The mean gradient of the aortic valve is 8 mmHg. The peak instantaneous gradient of the aortic valve is 17 mmHg. The aortic valve area, by peak velocities, is calculated at 1.3 cm2. The aortic valve area, by VTI's, is calculated at 1.6 cm2. Mitral Valve: The mitral valve leaflets are mildly thickened. There is trace to mild mitral regurgitation. There is no evidence of mitral stenosis. Tricuspid Valve: The tricuspid valve leaflets are mildly thickened. There is mild tricuspid regurgitation. The right ventricular systolic pressure is estimated at 26 mmHg. No pulmonary hypertension is noted. There is no tricuspid stenosis. Pulmonic Valve: The pulmonic valve appears normal. There is a trace pulmonic regurgitation. There is no pulmonic stenosis. Pericardium: There is no significant pericardial effusion. Aorta: There is mild dilatation of the ascending aorta. There is no dilatation of the aortic arch. There is mild dilatation of the aortic root. Pulmonary Artery: The main pulmonary artery appears normal. Venous: The inferior vena cava appears normal in size. There is a greater than 50% respiratory change in the inferior vena cava dimension. Summary: There are changes noted when compared to the previous study done on 04/21/2017, borderline increase in from borderline then. Dilated ascending aorta is new. Conclusions The left ventricular chamber size is normal. Basal interventricular septum shows moderate thickening. Moderate concentric left ventricular hypertrophy is observed. The estimated ejection fraction is 55-60%. Abnormal left ventricular diastolic function is observed. Abnormal left ventricular diastolic filling is observed, consistent with impaired relaxation. The left atrium is moderate to severely dilated. There is a trace of aortic regurgitation. There is mild aortic stenosis. There is trace to mild mitral regurgitation. There is mild tricuspid regurgitation. No pulmonary hypertension is noted. There is a trace pulmonic regurgitation. There is mild dilatation of the ascending aorta. Measurements Name Value Normal Range RVIDd (AP) 2D 4.3 cm (0.9 - 2.6) RVDdMajor (2D) 4.3 cm (2.2 - 4.4) RAd ISD 4CH 4.9 cm (3.4 - 4.9) RA (A4C)W 4 cm (2.9 - 4.6) IVSd (2D) 1.1 cm (0.6 - 1) LVPWd (2D) 1.1 cm (0.6 - 1) LVIDd (2D) 4.5 cm (3.6 - 5.4) LVIDs (2D) 2.6 cm - LV FS (2D) 42 % (25 - 45) Aortic Annulus 1.9 cm (1.4 - 2.6) Ao root diameter (2D) 3.6 cm (2.1 - 3.5) Ascending Ao 3.5 cm (2.1 - 3.4) Aortic arch 2.8 cm (1.8 - 3.4) LA dimension (AP) 2D 3.9 cm (2.3 - 3.8) LAd ISD 4CH 6 cm (2.9 - 5.3) LA ISD 4CH W 4.8 cm (2.5 - 4.5) Name Value Normal Range LA ESV BP (A/L) index 48 ml/m2 - Name Value Normal Range MV E-wave Vmax 0.5 m/sec - MV deceleration time 250 msec - MV A-wave Vmax 0.7 m/sec - MV E:A ratio 0.7 ratio - LV septal e' Vmax 0.03 m/sec - LV lateral e' Vmax 0.06 m/sec - LV E:e' septal ratio 16.67 ratio - LV E:e' lateral ratio 8.33 ratio - Name Value Normal Range AV Vmax 2.1 m/sec - AV VTI 44.8 cm - AV peak gradient 17 mmHg - AV mean gradient 8 mmHg - LVOT diameter 2 cm - LVOT Vmax 0.89 m/sec - LVOT VTI 23.4 cm - LVOT peak gradient 3 mmHg - LVOT mean gradient 2 mmHg - DOI (VTI) 0.5 ratio - YULI (continuity Vmax) 1.3 cm2 - YULI (continuity VTI) 1.6 cm2 - ZAINAB Vmax 0.8 m/sec - Name Value Normal Range TR Vmax 2.4 m/sec - TR peak gradient 23 mmHg - RAP 3 mmHg - RVSP 26 mmHg - IVC diameter 1.7 cm - Name Value Normal Range PV Vmax 1.22 m/sec - PV peak gradient 6 mmHg -
[2018-07-15] MEDS: Enoxaparin(*) 30 MG/0.3 ML SYR SUBCUT SCH (11:50)
--- NOTE | 2018-07-15 12:30 | PN ---
Subjective Date of Service: 07/15/18 Interval History: Patient seen and examined. No further ectopy or v-tach today. Was OOB with PT this am with no changes on tele. Patient denies SOB, no chest pain, no palpitations or dizziness. Objective Active Medications: Acetaminophen (Tylenol Tab*) 975 mg PO Q8HR [facility] Last Admin: 07/15/18 06:20 Dose: 975 mg Bisacodyl (Dulcolax Supp*) 10 mg OK DAILY PRN PRN Reason: constipation Cyclobenzaprine HCl (Flexeril Tab*) 10 mg PO TID PRN PRN Reason: SPASMS Diphenhydramine HCl (Benadryl Iv*) 12.5 mg IV Q6H PRN PRN Reason: PRURITIS Docusate Sodium (Colace Cap*) 100 mg PO BID [facility] Last Admin: 07/15/18 08:53 Dose: Not Given Enalapril Maleate (Vasotec Tab*) 10 mg PO BID [facility] Last Admin: 07/15/18 08:18 Dose: 10 mg Enoxaparin Sodium (Lovenox(*)) 30 mg SUBCUT Q24H [facility] Last Admin: 07/15/18 11:50 Dose: 30 mg Famotidine (Pepcid Tab*) 40 mg PO QAM [facility] Last Admin: 07/15/18 08:18 Dose: 40 mg Ferrous Sulfate (Ferrous Sulfate Tab*) 325 mg PO BID [facility] Last Admin: 07/15/18 08:18 Dose: 325 mg Hydralazine HCl (Apresoline Iv*) 5 mg IV SLOW PU Q6H PRN PRN Reason: BLOOD PRESSURE Cefazolin Sodium/Dextrose (Kefzol 1 Gm In Dextrose Duplex (*)) 1 gm in 50 mls @ 200 mls/hr IVPB Q8H [facility] Stop: 07/15/18 16:14 Last Admin: 07/15/18 08:15 Dose: 200 mls/hr Lactated Ringer's (Lactated Ringers 1000 Ml Bag*) 1,000 mls @ 100 mls/hr IV PER RATE [facility] Last Admin: 07/14/18 20:55 Dose: 100 mls/hr Lactulose (Lactulose*) 30 ml PO Q6H PRN PRN Reason: constipation Magnesium Hydroxide (Milk Of Magnesia Liq*) 30 ml PO BID [facility] Last Admin: 07/15/18 08:18 Dose: 30 ml Magnesium Hydroxide (Milk Of Magnesia Liq*) 30 ml PO Q6H PRN PRN Reason: constipation Morphine Sulfate (Morphine Inj ((Syringe))*) 2 mg IV Q2H PRN PRN Reason: PAIN - SEVERE Oxycodone HCl (Roxycodone Tab*) 10 mg PO Q4H PRN PRN Reason: SEVERE PAIN Oxycodone/Acetaminophen (Percocet 5/325 Tab*) 1 tab PO Q4H PRN PRN Reason: PAIN Oxycodone/Acetaminophen (Percocet 5/325 Tab*) 2 tab PO Q4H PRN PRN Reason: PAIN Pharmacy Profile Note (Coumadin Daily Reminder*) 1 note FOLLOW UP 1700 [facility] Polyethylene Glycol/Electrolytes (Miralax*) 17 gm PO DAILY PRN PRN Reason: Constipation Warfarin Sodium (Coumadin Tab(*)) 8 mg PO ONCE@1700 ONE; Protocol Stop: 07/15/18 17:01 Warfarin Sodium (Coumadin Tab(*)) 6 mg PO ONCE@1700 ONE; Protocol Stop: 07/15/18 17:01 Vital Signs - 8 hr 07/15/18 07/15/18 07/15/18 04:30 04:45 05:00 Temperature Pulse Rate 56 58 56 Respiratory 19 21 16 Rate Blood Pressure 123/62 139/81 137/69 (mmHg) O2 Sat by Pulse 99 97 99 Oximetry 07/15/18 07/15/18 07/15/18 05:15 05:30 05:45 Temperature Pulse Rate 57 57 56 Respiratory 18 23 4 Rate Blood Pressure 146/67 148/66 137/62 (mmHg) O2 Sat by Pulse 98 99 Oximetry 07/15/18 07/15/18 07/15/18 06:00 06:15 06:45 Temperature Pulse Rate 59 59 55 Respiratory 14 18 14 Rate Blood Pressure 122/70 133/71 121/56 (mmHg) O2 Sat by Pulse 98 96 99 Oximetry 07/15/18 07/15/18 07/15/18 07:00 07:15 07:30 Temperature Pulse Rate 54 53 51 Respiratory 14 16 13 Rate Blood Pressure 125/65 113/55 126/63 (mmHg) O2 Sat by Pulse 98 97 98 Oximetry 07/15/18 07/15/18 07/15/18 07:45 07:56 08:00 Temperature 98.4 F Pulse Rate 51 56 Respiratory 14 20 Rate Blood Pressure 117/57 129/56 (mmHg) O2 Sat by Pulse 98 100 Oximetry 07/15/18 07/15/18 07/15/18 08:15 08:31 08:46 Temperature Pulse Rate 54 58 56 Respiratory 14 16 14 Rate Blood Pressure 113/53 129/85 154/68 (mmHg) O2 Sat by Pulse 99 96 100 Oximetry 07/15/18 07/15/18 07/15/18 09:00 09:16 09:30 Temperature Pulse Rate 64 59 58 Respiratory 16 20 17 Rate Blood Pressure 135/70 129/63 121/58 (mmHg) O2 Sat by Pulse 100 99 Oximetry 07/15/18 07/15/18 07/15/18 09:47 10:00 10:16 Temperature 97.5 F Pulse Rate 66 65 60 Respiratory 17 13 18 Rate Blood Pressure 138/88 104/69 (mmHg) O2 Sat by Pulse 95 99 Oximetry 07/15/18 07/15/18 07/15/18 10:30 10:46 11:00 Temperature Pulse Rate 58 59 59 Respiratory 15 19 24 Rate Blood Pressure 113/58 105/59 (mmHg) O2 Sat by Pulse 100 99 99 Oximetry 07/15/18 07/15/18 11:02 11:15 Temperature Pulse Rate 59 59 Respiratory 20 18 Rate Blood Pressure 109/55 106/59 (mmHg) O2 Sat by Pulse 98 99 Oximetry Oxygen Devices in Use Now: None Appearance: Alert, NAD Eyes: No Scleral Icterus, PERRLA Ears/Nose/Mouth/Throat: Mucous Membranes Moist, - - poor dentition Neck: NL Appearance and Movements; NL JVP, Trachea Midline Respiratory: Symmetrical Chest Expansion and Respiratory Effort, Clear to Auscultation Cardiovascular: NL Sounds; No Murmurs; No JVD, - - sinus rhythm to sinus david Abdominal: NL Sounds; No Tenderness; No Distention Extremities: No Edema, No Clubbing, Cyanosis Skin: No Rash or Ulcers Neurological: Alert and Oriented x 3, NL Sensation Nutrition: Taking PO's Result Diagrams: 07/15/18 04:53 07/15/18 05:19 Microbiology and Other Data: Microbiology 07/14/18 21:28 Nasal Screen MRSA (PCR) - Final Nasal Mrsa Not Detected Diagnostic Imaging: CARDIAC ECHO The left ventricular chamber size is normal. Basal interventricular septum shows moderate thickening. Moderate concentric left ventricular hypertrophy is observed. The estimated ejection fraction is 55-60%. Abnormal left ventricular diastolic function is observed. Abnormal left ventricular diastolic filling is observed, consistent with impaired relaxation. The left atrium is moderate to severely dilated. There is a trace of aortic regurgitation. There is mild aortic stenosis. There is trace to mild mitral regurgitation. There is mild tricuspid regurgitation. No pulmonary hypertension is noted. There is a trace pulmonic regurgitation. There is mild dilatation of the ascending aorta. Assess/Plan/Problems-Billing Assessment: This is an 82 year old female with history of OA, atrial fibrillation, anxiety, HTN that presented for elective total hip arthroplasty and had post-operative run of V-tach that spontaneously terminated and was placed in ICU for close monitoring. - Patient Problems (1) Ventricular arrhythmia Code(s): I49.9 - CARDIAC ARRHYTHMIA, UNSPECIFIED SNOMED Code(s): 76977242 Comment: - Had run of vtach post-operatively that resolved - Magnesium noted to be low, was repleted and is 2.7 today and start slo-mag tomorrow - Patient states she has had afib in the past, but no other arrhytmias - Has been sinus bradycardia with no further ectopic beats - ECHO as above - Has seen Dr. Cuellar before surgery for clearance, recommend follow up with him as an outpatient for event monitor if warranted - Pre-procedure stress was low risk per patient's report (2) Avascular necrosis of bone of left hip Code(s): M87.052 - IDIOPATHIC ASEPTIC NECROSIS OF LEFT FEMUR SNOMED Code(s): 915737476 Comment: - POD1 complex left total hip arthroplasty - Primary POC as per ortho - Pain control, PT/OT, bowel regimen - DVT prophylaxis with coumadin bridge (3) Anxiety Code(s): F41.9 - ANXIETY DISORDER, UNSPECIFIED SNOMED Code(s): 52674090 Comment: - Mood stable (4) Esophagitis Code(s): K20.9 - ESOPHAGITIS, UNSPECIFIED SNOMED Code(s): 61580882 Comment: - Has allergies to omeprazole and sucralfate - Continue pepcid daily (5) Hypertension Code(s): I10 - ESSENTIAL (PRIMARY) HYPERTENSION SNOMED Code(s): 90753263 Comment: - Stable on enalapril Status and Disposition: Medically optimized for transfer back to surgical unit, remain on telemetry for duration of inpatient hospitalization. Dispo per ortho.
--- NOTE | 2018-07-15 13:09 | CONS ---
CC: Dr. Mendoza; Micah Larson, hospitalist service; Dr. Cuellar, Cardiology; Dr. Meade, primary care doctor CARDIOLOGY CONSULT: DATE OF CONSULT: 07/15/18 HISTORY OF PRESENT ILLNESS: I was asked by Micah Larson from the hospitalist service to do a cardio logy consult on this 82-year-old female patient who had a total left hip replacement done yesterday, 07/14/18. It was noticed on the monitor after her surgery that she had very short runs of borderline wide complex tachycardia. There was some concerns of ventricular tachycardia that is possible versu s aberrancy. She had nausea with it, but she had no chest pain, no dizziness, no syncope. She had a history of systemic arterial hypertension and on medical treatment for that. She does have a histor y of borderline aortic stenosis; history of atrial flutter, paroxysmal; and history of anemia; histor y of SVT, paroxysmal as well. She was found to have magnesium 1.6, potassium 3.8. Both of them are corrected nicely with the potassium this morning at 5 and magnesium 2.7 this morning. Her troponin w as 0.01 x3. Her thyroid showed her total T3 to be 74 and TSH to be 6.58. She had no history of yessy nary artery disease, no history of myocardial infarction. She was evaluated recently by her primary service assistant, Dr. Cuellar, on 06/29/18 and she was cleared to proceed for her total left hip replaceme nt from cardiac standpoint and she was considered not to be a high risk for that. She gives no histo ry of congestive heart failure, no diabetes mellitus, no hyperlipidemia, no smoking. She gives no vo miting, no hematochezia, no skin rash, no abdominal pain. She is comfortable in the intensive care u nit and feels good actually. Review of all other systems essentially is negative. PAST MEDICAL HISTORY: Systemic arterial hypertension, anemia, depression, anxiety, esophagitis, paro xysmal SVT, and atrial flutter. PAST SURGICAL HISTORY: Hysterectomy; appendectomy; tonsillectomy with adenoidectomy; and total left hip replacement done yesterday, 07/14/18. MEDICATIONS: Her medications as an inpatient include: 1. Morphine 2 mg IV q.2 hours p.r.n. for pain. 2. Percocet 1 tablet p.o. q.4 hours p.r.n. 3. Coumadin adjusted to her PT and INR. 4. She is on as well Tylenol 975 mg q.8 hours for pain. 5. Cefazolin 1 g p.r.n. 24 hours. 6. Flexeril 10 mg p.o. t.i.d. p.r.n. for spasm. 7. Benadryl 12.5 mg IV q.6 hours for pruritus. 8. Colace 100 mg twice a day. 9. Vasotec 10 mg twice a day. 10. Lovenox 30 mg subcu q.24 hours. 11. Pepcid 40 mg daily. 12. Ferrous sulfate 325 mg twice a day. 13. Hydralazine 5 mg IV q.6 hours for blood pressure that is elevated. ALLERGIES: No known allergies. FAMILY HISTORY: No family history of premature CAD. SOCIAL HISTORY: She gives no history of smoking, no drinking, no illicit drug use. She lives alone. She is retired. REVIEW OF SYSTEMS: Review of all other systems essentially is negative. PHYSICAL EXAM: On exam, she is awake, alert, and oriented. She is not in acute distress. Vitals: Blood pressure 120/70, pulse 60, sinus rhythm. Head and Neck Exam: Normocephalic, atraumatic head. Ears, Nose, and Throat: Essentially benign. Neck: Supple. JVP is not elevated. No carotid bruit s. No masses in the neck are appreciated. Chest: Clear to auscultation. No rales, no wheeze, no a dded sounds are appreciated. Heart: Normal. Regular S1, S2. No added sounds. No gallops, no rubs. Abdomen: Benign, soft. Positive bowel sounds. Extremities: No edema, no cyanosis, no clubbing. Skin exam is normal. Psych: Normal affect and mood. DRAWING KILN SUPERVISOR: No focal deficits appreciated. DIAGNOSTIC STUDIES/LAB DATA: Her echo today showed her to have a normal left ventricular systolic fu nction with an EF of 55% to 60%. There is mild aortic stenosis, trace aortic insufficiency, trace-to -mild mitral insufficiency, mild tricuspid insufficiency, and trace pulmonic insufficiency, mild dila tation of the aorta. Her labs, sodium now 133, potassium 5, chloride 101, BUN 15, creatinine 0.71. LFTs normal. Troponin 0.1 x3. TSH 6.58. White blood cell 13.9; hemoglobin 11, it is 10.8 today; hematocrit 32; platelets 272. EKG from yesterday showed the patient to be in sinus rhythm, heart rate 52 beats per minute, sinus br adycardia, PVC appreciated. No acute ST-T changes. Borderline left atrial abnormality. IMPRESSION: The patient is an 82-year-old female patient with: 1. Status post total left hip replacement, 07/14/18. 2. There were some concerns of very brief run of possible ventricular tachycardia, possible aberranc y, no recurrence. 3. She was found to have low magnesium at 1.6 and potassium of 3.8, both are corrected nicely. 4. History of systemic arterial hypertension. 5. History of paroxysmal supraventricular tachycardia and paroxysmal atrial flutter. 6. Anemia, which is chronic. 7. Normal left ventricular systolic function. 8. Mild aortic stenosis. PLAN: Overall, the patient appears to be hemodynamically stable. She is not in congestive heart patrick lure. She has no angina. From cardiac standpoint, she was already cleared last month to proceed wit h her surgery, which she did really very well. She is hemodynamically stable. She is asymptomatic t his morning. At the present time, I have no further recommendations for any further cardiac testing. I think we can monitor her closely, keep her well hydrated, keep potassium more than 4, magnesium m ore than 2, make sure you keep a close eye on her hemoglobin and hematocrit, not to have significant anemia after her surgery. Any further recommendations would be pending her clinical outcome. I disc ussed this with Micah Larson via phone and I discussed this with the patient. I answered all her co ncerns and questions up to her satisfaction. TIME SPENT: More than half of at least 60 to 65 plus minutes was in [id number] education, counseli ng mode, and making further evaluation. [id number]/[facility] #: [id number]
--- NOTE | 2018-07-15 13:14 | PN ---
Progress Note - Progress Note Date of Service: 07/15/18 SOAP: Subjective: [] Patient seen and examined OOB in chair. She feels well without hip pain, chest pain, irregular heartbeats, shortness of breath, nausea or dizziness. Objective: [] General: Well appearing, NAD LLE: Left hip dressing CDI without surrounding erythema. Thigh is soft. DF/PF intact. DP2+. Capillary refill less than two seconds distally. Sensation intact distally. BL calves supple and nontender without erythema, edema or palpable cords Assessment: []82 yo F pod 1 s/p LTHA Plan: WBAT PT/OT Transfer back to [facility] per medicine Labs show leukocytosis with a left shift - await UA results. Repeat CBC in the morning Coumadin with lovenox bridge. Coumadin 8 mg today Vital Signs Temp 97.5 F 07/15/18 10:00 Pulse 68 07/15/18 12:30 Resp 15 07/15/18 12:30 BP 149/75 07/15/18 12:30 Pulse Ox 99 07/15/18 12:30 Intake & Output 07/14/18 07/15/18 07/15/18 18:59 06:59 18:59 Intake Total 1900 1203.4 1740 Output Total 700 1075 0 Balance 1200 128.4 1740 Weight 117 lb 119 lb 14.903 oz Intake: IV Fluids 1900 1040.7 LR 1900 940 Mag 100.7 IVPB 72 Mag 72 Medicated IV 90.7 CC - Amiodarone 90.7 Oral 1740 Output: Urine 0 0 Ferraro 700 1075 Other: Estimated Blood Loss 200 Comment Laboratory Last Values WBC 13.9 10^3/ul (3.5-10.8) H 07/14/18 20:31 RBC 3.97 10^6/ul (4.00-5.40) L 07/14/18 20:31 Hgb 10.8 g/dl (12.0-16.0) L 07/15/18 04:53 Hct 32 % (35-47) L 07/15/18 04:53 MCV 84 fL (80-97) 07/14/18 20:31 MCH 28 pg (27-31) 07/14/18 20:31 MCHC 33 g/dl (31-36) 09/04/18 20:31 RDW 14 % (10.5-15) 07/14/18 20:31 Plt Count 272 10^3/ul (150-450) 07/15/18 04:53 MPV 7.7 um3 (7.4-10.4) 07/15/18 04:53 Neut % (Auto) 93.6 % (38-83) H 07/14/18 20:31 Lymph % (Auto) 3.5 % (25-47) L 07/14/18 20:31 [place]andt % (Auto) 2.4 % (0-7) 07/14/18 20:31 Eos % (Auto) 0.2 % (0-6) 07/14/18 20:31 Baso % (Auto) 0.3 % (0-2) 07/14/18 20:31 Absolute Neuts (auto) 13.1 10^3/ul (1.5-7.7) H 07/14/18 20:31 Absolute Lymphs (auto) 0.5 10^3/ul (1.0-4.8) L 07/14/18 20:31 Absolute Monos (auto) 0.3 10^3/ul (0-0.8) 07/14/18 20:31 Absolute Eos (auto) 0 10^3/ul (0-0.6) 07/14/18 20:31 Absolute Basos (auto) 0 10^3/ul (0-0.2) 07/14/18 20:31 Absolute Nucleated RBC 0 10^3/ul 07/14/18 20:31 Nucleated RBC % 0 07/14/18 20:31 INR (Anticoag Therapy) 0.93 (0.77-1.02) 07/15/18 04:53 Sodium 133 mmol/L (135-145) L 07/15/18 05:19 Potassium 5.0 mmol/L (3.5-5.0) 07/15/18 05:19 Chloride 101 mmol/L (101-111) 07/15/18 05:19 Carbon Dioxide 25 mmol/L (22-32) 07/15/18 05:19 Anion Gap 7 mmol/L (2-11) 07/15/18 05:19 BUN 15 mg/dL (6-24) 07/15/18 05:19 Creatinine 0.71 mg/dL (0.51-0.95) 07/15/18 05:19 Est GFR ( Amer) 95.4 (>60) 07/15/18 05:19 Est GFR (Non-Af Amer) 78.8 (>60) 07/15/18 05:19 BUN/Creatinine Ratio 21.1 (8-20) H 07/15/18 05:19 Glucose 113 mg/dL (70-100) H 07/15/18 05:19 Calcium 8.4 mg/dL (8.6-10.3) L 07/15/18 05:19 Magnesium 2.7 mg/dL (1.9-2.7) 07/15/18 05:19 Total Bilirubin 0.40 mg/dL (0.2-1.0) 07/14/18 20:31 AST 24 U/L (13-39) 07/14/18 20:31 ALT 13 U/L (7-52) 07/14/18 20:31 Alkaline Phosphatase 67 U/L (34-104) 07/14/18 20:31 Troponin I 0.01 ng/mL (<0.04) 07/15/18 05:19 Total Protein 6.1 g/dL (6.4-8.9) L 07/14/18 20:31 Albumin 3.2 g/dL (3.2-5.2) 07/14/18 20:31 Globulin 2.9 g/dL (2-4) 07/14/18 20:31 Albumin/Globulin Ratio 1.1 (1-3) 07/14/18 20:31 TSH 6.58 mcIU/mL (0.34-5.60) H 07/14/18 20:31 Free T4 0.91 ng/dL (0.61-1.12) 07/14/18 20:31 Thyroxine (T4) 9.04 mcg/mL (6.09-12.23) 07/14/18 20:31 Free T3 2.70 pg/mL (2.5-3.9) 07/14/18 20:31 Total T3 74 ng/dL (87-178) L 07/14/18 20:31
[2018-07-15 21:17] LABS: Urine Appearance Clear; Urine Blood 2+ (Negative); Urine Color Yellow; Urine Ketones Negative (Negative); Urine Protein Negative (Negative); Urine Red Blood Cell 3+(>10/hpf) (Absent); Urine Specific Gravity 1.015 (1.010-1.030); Urine Urobilinogen Negative (Negative); Urine White Blood Cell Trace(0-5/hpf) (Absent)
[2018-07-15] MEDS: NS 0.9% 1000 ML* 1,000 ML IV SCH (22:39)
--- NOTE | 2018-07-16 02:34 | PN ---
Progress Note - Progress Note Date of Service: 07/16/18 Note: Nursing reports patient coughing after PO intake. She coughs until she 'vomits' up mucous. Patient reported to nurse this happens at home. Certainly this gives rise to aspiration issues and as such she will be made NPO and an order for speech therapy evaluation placed.
[2018-07-16] MEDS: Morphine INJ* 2 MG/ML 1 ML SYRINGE (TWO MG - NEW SYRINGE VERSION) IV PRN (04:32)
[2018-07-16] MEDS: Acetaminophen TAB* 325 MG PO SCH ×3 (05:49→22:13)
[2018-07-16 06:11] LABS: ABS Basophils 0 10^3/ul (0-0.2); ABS Eosinophils 0 10^3/ul (0-0.6); ABS Lymphocytes 0.5 10^3/ul (1.0-4.8); ABS Monocytes 0.6 10^3/ul (0-0.8); ABS Neutrophils 2.9 10^3/ul (1.5-7.7); ABS Nucleated RBC 0 10^3/ul; Eosinophil % 0.1 % (0-6); Hematocrit 25 % (35-47); Hemoglobin 8.5 g/dl (12.0-16.0); Lymphocyte % 13.2 % (25-47); Mean Corpuscular HGB Conc 35 g/dl (31-36); Mean Corpuscular Hemoglobin 29 pg (27-31); Mean Corpuscular Volume 83 fL (80-97); Mean Platelet Volume 8.1 um3 (7.4-10.4); Nucleated Red Blood Cells % 0; Platelet Count 236 10^3/ul (150-450); Red Cell Distribution Width 15 % (10.5-15); White Blood Count 4.1 10^3/ul (3.5-10.8)
[2018-07-16 06:16] LABS: INR 1.38 (0.77-1.02)
[2018-07-16] MEDS: NS 0.9% 1000 ML* 1,000 ML IV SCH (07:19)
[2018-07-16] MEDS: oxyCODONE/Acetamin 5/325 MG* TAB PO PRN ×3 (09:42→21:54)
[2018-07-16] MEDS: Enalapril TAB* 5 MG PO SCH (09:44)
[2018-07-16] MEDS: Magnesium Hydroxide LIQ* 30 ML UDC PO SCH ×2 (09:45→21:55)
[2018-07-16] MEDS: Famotidine TAB* 20 MG PO SCH (09:45)
[2018-07-16] MEDS: Docusate CAP* 100 MG PO SCH ×2 (09:45→21:55)
[2018-07-16] MEDS: Ferrous Sulfate TAB* 325 MG PO SCH ×2 (09:45→21:55)
[2018-07-16] MEDS: Magnesium Chloride EC TAB* 64 MG PO SCH (09:45)
--- NOTE | 2018-07-16 10:28 | PN ---
Subjective Date of Service: 07/16/18 Interval History: pt feels well after swallow eval OK'ed pt for mach ground diet. Pt usually uses soft diet at home and has problems with chronic esophageal dysphagia due to gastritis Objective Active Medications: Acetaminophen (Tylenol Tab*) 975 mg PO Q8HR [facility] Last Admin: 07/16/18 05:49 Dose: Not Given Bisacodyl (Dulcolax Supp*) 10 mg SD DAILY PRN PRN Reason: constipation Cyclobenzaprine HCl (Flexeril Tab*) 10 mg PO TID PRN PRN Reason: SPASMS Diphenhydramine HCl (Benadryl Iv*) 12.5 mg IV Q6H PRN PRN Reason: PRURITIS Docusate Sodium (Colace Cap*) 100 mg PO BID [facility] Last Admin: 07/16/18 09:45 Dose: Not Given Enalapril Maleate (Vasotec Tab*) 10 mg PO BID [facility] Last Admin: 07/16/18 09:44 Dose: 10 mg Enoxaparin Sodium (Lovenox(*)) 30 mg SUBCUT Q24H [facility] Last Admin: 07/15/18 11:50 Dose: 30 mg Famotidine (Pepcid Tab*) 40 mg PO QAM [facility] Last Admin: 07/16/18 09:45 Dose: Not Given Ferrous Sulfate (Ferrous Sulfate Tab*) 325 mg PO BID [facility] Last Admin: 07/16/18 09:45 Dose: Not Given Hydralazine HCl (Apresoline Iv*) 5 mg IV SLOW PU Q6H PRN PRN Reason: BLOOD PRESSURE Lactulose (Lactulose*) 30 ml PO Q6H PRN PRN Reason: constipation Magnesium Chloride (Slow Mag Ec Tab*) 64 mg PO DAILY [facility] Last Admin: 07/16/18 09:45 Dose: Not Given Magnesium Hydroxide (Milk Of Magnesia Liq*) 30 ml PO BID [facility] Last Admin: 07/16/18 09:45 Dose: Not Given Magnesium Hydroxide (Milk Of Magnesia Liq*) 30 ml PO Q6H PRN PRN Reason: constipation Morphine Sulfate (Morphine Inj ((Syringe))*) 2 mg IV Q2H PRN PRN Reason: PAIN - SEVERE Last Admin: 07/16/18 04:32 Dose: 2 mg Oxycodone HCl (Roxycodone Tab*) 10 mg PO Q4H PRN PRN Reason: SEVERE PAIN Last Admin: 07/15/18 16:45 Dose: 10 mg Oxycodone/Acetaminophen (Percocet 5/325 Tab*) 1 tab PO Q4H PRN PRN Reason: PAIN Last Admin: 07/16/18 09:42 Dose: 1 tab Oxycodone/Acetaminophen (Percocet 5/325 Tab*) 2 tab PO Q4H PRN PRN Reason: PAIN Pharmacy Profile Note (Coumadin Daily Reminder*) 1 note FOLLOW UP 1700 [facility] Last Admin: 07/15/18 16:49 Dose: 1 note Polyethylene Glycol/Electrolytes (Miralax*) 17 gm PO DAILY PRN PRN Reason: Constipation Vital Signs - 8 hr 07/16/18 07/16/18 07/16/18 03:47 04:32 05:49 Temperature 98.8 F Pulse Rate 89 Respiratory 16 16 16 Rate Blood Pressure 147/67 (mmHg) O2 Sat by Pulse 97 Oximetry 07/16/18 07/16/18 07/16/18 08:00 08:28 09:42 Temperature 97.9 F Pulse Rate 77 Respiratory 18 18 18 Rate Blood Pressure 138/53 (mmHg) O2 Sat by Pulse 97 96 Oximetry Oxygen Devices in Use Now: None Appearance: 82 yo F in nAD, aAOx3 Eyes: No Scleral Icterus, PERRLA Ears/Nose/Mouth/Throat: NL Teeth, Lips, Gums, Mucous Membranes Moist Neck: NL Appearance and Movements; NL JVP, Trachea Midline Respiratory: Symmetrical Chest Expansion and Respiratory Effort, Clear to Auscultation Cardiovascular: NL Sounds; No Murmurs; No JVD, RRR Abdominal: NL Sounds; No Tenderness; No Distention Lymphatic: No Cervical Adenopathy Extremities: No Edema, No Clubbing, Cyanosis Skin: No Rash or Ulcers, No Nodules or Sclerosis, - - left high post op incision not uncovered Neurological: Alert and Oriented x 3, NL Muscle Strength and Tone Result Diagrams: 07/16/18 05:22 07/15/18 05:19 Microbiology and Other Data: Microbiology 07/14/18 21:28 Nasal Screen MRSA (PCR) - Final Nasal Mrsa Not Detected Diagnostic Imaging: CARDIAC ECHO The left ventricular chamber size is normal. Basal interventricular septum shows moderate thickening. Moderate concentric left ventricular hypertrophy is observed. The estimated ejection fraction is 55-60%. Abnormal left ventricular diastolic function is observed. Abnormal left ventricular diastolic filling is observed, consistent with impaired relaxation. The left atrium is moderate to severely dilated. There is a trace of aortic regurgitation. There is mild aortic stenosis. There is trace to mild mitral regurgitation. There is mild tricuspid regurgitation. No pulmonary hypertension is noted. There is a trace pulmonic regurgitation. There is mild dilatation of the ascending aorta. Assess/Plan/Problems-Billing Assessment: This is an 82 year old female with history of OA, atrial fibrillation, anxiety, HTN that presented for elective total hip arthroplasty and had post-operative run of V-tach that spontaneously terminated and was placed in ICU for close monitoring. Transferred to [facility] on 07/15/18 - Patient Problems (1) Avascular necrosis of bone of left hip Comment: - s/p complex left total hip arthroplasty on 07/14/18 - as per ortho - Pain control, PT/OT, bowel regimen - DVT prophylaxis with coumadin bridge (2) Ventricular arrhythmia Comment: - Had run of vtach post-operatively that resolved - Magnesium noted to be low, was repleted and is 2.7 today and start slo-mag tomorrow - Patient states she has had afib in the past, but no other arrhytmias - Has been sinus bradycardia with no further ectopic beats - ECHO as above - Has seen Dr. Cuellar before surgery for clearance, recommend follow up with him as an outpatient for event monitor if warranted. appreciate Dr. Welsh's consult - Pre-procedure stress was low risk per patient's report (3) Esophagitis Comment: - Has allergies to omeprazole and sucralfate - Continue pepcid daily -had symptoms of cough with meals and now on mech ground diet (4) Hypertension Comment: - Stable on enalapril (5) Postoperative anemia due to acute blood loss Comment: post op Hb down to 8.5, no evidence of hematoma. cont to monitor Hemodynamically stable (6) Anxiety Current Visit: Yes Status: Acute Comment: - Mood stable (7) DVT prophylaxis Comment: Lovenox to Coumadin bridge as per ortho Status and Disposition: Medically optimized for transfer back to surgical unit, remain on telemetry for duration of inpatient hospitalization. Dispo per ortho.
[2018-07-16] MEDS: Enoxaparin(*) 30 MG/0.3 ML SYR SUBCUT SCH (12:17)
--- NOTE | 2018-07-16 13:09 | PN ---
Progress Note - Progress Note Date of Service: 07/16/18 SOAP: Subjective: []Patient seen at bedside. She is feeling well. Due to coughing with eating she will have a swallow eval today. Denies chest pain, shortness of breath, dizziness, nausea. Objective: []General: Well appearing, NAD LLE: Left hip dressing changed by Dr Becerril this morning. Dressing is CDI without surrounding erythema. Thigh is soft. DF/PF intact. DP2+. Capillary refill less than two seconds distally. Sensation intact distally. BL calves supple and nontender without erythema, edema or palpable cords Assessment: []82 yo F pod 2 s/p LTHA Plan: WBAT PT/OT Swallow eval pending Coumadin with lovenox bridge. Coumadin 6 mg today Vital Signs Temp 98.0 F 07/16/18 11:34 Pulse 74 07/16/18 11:34 Resp 16 07/16/18 12:16 BP 106/49 07/16/18 12:45 Pulse Ox 98 07/16/18 12:45 Intake & Output 07/15/18 07/16/18 07/16/18 18:59 06:59 18:59 Intake Total 1740 1475 1413 Output Total 0 450 350 Balance 1740 1025 1063 Intake: IV Fluids 955 1413 NS (0.9%) 955 1413 Oral 1740 520 Output: Urine 0 450 350 Other: Estimated Void Medium # Bowel Movements 0 # Voids 1 Laboratory Last Values WBC 4.1 10^3/ul (3.5-10.8) 07/16/18 05:22 RBC 3.00 10^6/ul (4.00-5.40) L 07/16/18 05:22 Hgb 8.5 g/dl (12.0-16.0) L 07/16/18 05:22 Hct 25 % (35-47) L 07/16/18 05:22 MCV 83 fL (80-97) 07/16/18 05:22 MCH 29 pg (27-31) 07/16/18 05:22 MCHC 35 g/dl (31-36) 07/16/18 05:22 RDW 15 % (10.5-15) 07/16/18 05:22 Plt Count 236 10^3/ul (150-450) 07/16/18 05:22 MPV 8.1 um3 (7.4-10.4) 07/16/18 05:22 Neut % (Auto) 71.1 % (38-83) 07/16/18 05:22 Lymph % (Auto) 13.2 % (25-47) L 07/16/18 05:22 [place] % (Auto) 15.3 % (0-7) H 07/16/18 05:22 Eos % (Auto) 0.1 % (0-6) 07/16/18 05:22 Baso % (Auto) 0.3 % (0-2) 07/16/18 05:22 Absolute Neuts (auto) 2.9 10^3/ul (1.5-7.7) 07/16/18 05:22 Absolute Lymphs (auto) 0.5 10^3/ul (1.0-4.8) L 07/16/18 05:22 Absolute Monos (auto) 0.6 10^3/ul (0-0.8) 07/16/18 05:22 Absolute Eos (auto) 0 10^3/ul (0-0.6) 07/16/18 05:22 Absolute Basos (auto) 0 10^3/ul (0-0.2) 07/16/18 05:22 Absolute Nucleated RBC 0 10^3/ul 07/16/18 05:22 Nucleated RBC % 0 07/16/18 05:22 INR (Anticoag Therapy) 1.38 (0.77-1.02) H 07/16/18 05:22 Sodium 133 mmol/L (135-145) L 07/15/18 05:19 Potassium 5.0 mmol/L (3.5-5.0) 07/15/18 05:19 Chloride 101 mmol/L (101-111) 07/15/18 05:19 Carbon Dioxide 25 mmol/L (22-32) 07/15/18 05:19 Anion Gap 7 mmol/L (2-11) 07/15/18 05:19 BUN 15 mg/dL (6-24) 07/15/18 05:19 Creatinine 0.71 mg/dL (0.51-0.95) 07/15/18 05:19 Est GFR ( Amer) 95.4 (>60) 07/15/18 05:19 Est GFR (Non-Af Amer) 78.8 (>60) 07/15/18 05:19 BUN/Creatinine Ratio 21.1 (8-20) H 07/15/18 05:19 Glucose 113 mg/dL (70-100) H 07/15/18 05:19 Calcium 8.4 mg/dL (8.6-10.3) L 07/15/18 05:19 Magnesium 2.7 mg/dL (1.9-2.7) 07/15/18 05:19 Total Bilirubin 0.40 mg/dL (0.2-1.0) 07/14/18 20:31 AST 24 U/L (13-39) 07/14/18 20:31 ALT 13 U/L (7-52) 07/14/18 20:31 Alkaline Phosphatase 67 U/L (34-104) 07/14/18 20:31 Troponin I 0.01 ng/mL (<0.04) 07/15/18 05:19 Total Protein 6.1 g/dL (6.4-8.9) L 07/14/18 20:31 Albumin 3.2 g/dL (3.2-5.2) 07/14/18 20:31 Globulin 2.9 g/dL (2-4) 07/14/18 20:31 Albumin/Globulin Ratio 1.1 (1-3) 07/14/18 20:31 TSH 6.58 mcIU/mL (0.34-5.60) H 07/14/18 20:31 Free T4 0.91 ng/dL (0.61-1.12) 07/14/18 20:31 Thyroxine (T4) 9.04 mcg/mL (6.09-12.23) 07/14/18 20:31 Free T3 2.70 pg/mL (2.5-3.9) 07/14/18 20:31 Total T3 74 ng/dL (87-178) L 07/14/18 20:31 Urine Color Yellow 07/15/18 19:30 Urine Appearance Clear 07/15/18 19:30 Urine pH 5.0 (5-9) 07/15/18 19:30 Ur Specific [place] 1.015 (1.010-1.030) 07/15/18 19:30 Urine Protein Negative (Negative) 07/15/18 19:30 Urine Ketones Negative (Negative) 07/15/18 19:30 Urine Blood 2+ (Negative) A 07/15/18 19:30 Urine Nitrate Negative (Negative) 07/15/18 19:30 Urine Bilirubin Negative (Negative) 07/15/18 19:30 Urine Urobilinogen Negative (Negative) 07/15/18 19:30 Ur Leukocyte Esterase Negative (Negative) 07/15/18 19:30 Urine WBC (Auto) Trace(0-5/hpf) (Absent) 07/15/18 19:30 Urine RBC (Auto) 3+(>10/hpf) (Absent) A 07/15/18 19:30 Ur Squamous Epith Cells Present (Absent) A 07/15/18 19:30 Urine Bacteria Absent (Absent) 07/15/18 19:30 Hyaline Casts Present (Absent) A 07/15/18 19:30 Urine Glucose Negative (Negative) 07/15/18 19:30
[2018-07-17] MEDS: oxyCODONE/Acetamin 5/325 MG* TAB PO PRN ×3 (02:22→23:39)
[2018-07-17 06:17] LABS: ABS Basophils 0 10^3/ul (0-0.2); ABS Eosinophils 0.1 10^3/ul (0-0.6); ABS Lymphocytes 0.9 10^3/ul (1.0-4.8); ABS Monocytes 0.6 10^3/ul (0-0.8); ABS Neutrophils 2.3 10^3/ul (1.5-7.7); ABS Nucleated RBC 0 10^3/ul; Eosinophil % 1.5 % (0-6); Hematocrit 25 % (35-47); Hemoglobin 8.4 g/dl (12.0-16.0); Lymphocyte % 23.3 % (25-47); Mean Corpuscular HGB Conc 34 g/dl (31-36); Mean Corpuscular Hemoglobin 28 pg (27-31); Mean Corpuscular Volume 82 fL (80-97); Mean Platelet Volume 7.9 um3 (7.4-10.4); Nucleated Red Blood Cells % 0; Platelet Count 227 10^3/ul (150-450); Red Blood Count 2.98 10^6/ul (4.00-5.40); Red Cell Distribution Width 14 % (10.5-15); White Blood Count 3.9 10^3/ul (3.5-10.8)
[2018-07-17 06:24] LABS: INR 3.39 (0.77-1.02)
[2018-07-17 06:37] LABS: EGFR Non-African American 99.5 (>60)
[2018-07-17] MEDS: Acetaminophen TAB* 325 MG PO SCH ×3 (06:41→22:45)
--- NOTE | 2018-07-17 07:28 | PN ---
Progress Note - Progress Note Date of Service: 07/17/18 SOAP: Subjective: Pt. is alert, reports pain is well controlled. She wants to go home today and feels she has adequate support. Objective: Vital Signs: Temp Pulse Resp BP Pulse Ox 98.5 F 73 18 129/57 95 07/17/18 04:02 07/17/18 04:02 07/17/18 04:35 07/17/18 04:02 07/17/18 04:02 Laboratory Results - last 24 hr 07/17/18 07/17/18 07/17/18 06:03 06:03 06:03 WBC 3.9 RBC 2.98 L Hgb 8.4 L Hct 25 L MCV 82 MCH 28 MCHC 34 RDW 14 Plt Count 227 MPV 7.9 Neut % (Auto) 58.5 Lymph % (Auto) 23.3 L [place] % (Auto) 16.2 H Eos % (Auto) 1.5 Baso % (Auto) 0.5 Absolute Neuts (auto) 2.3 Absolute Lymphs (auto) 0.9 L Absolute Monos (auto) 0.6 Absolute Eos (auto) 0.1 Absolute Basos (auto) 0 Absolute Nucleated RBC 0 Nucleated RBC % 0 INR (Anticoag Therapy) 3.39 H Sodium 133 L Potassium 3.9 Chloride 103 Carbon Dioxide 27 Anion Gap 3 BUN 11 Creatinine 0.58 Est GFR ( Amer) 120.4 Est GFR (Non-Af Amer) 99.5 BUN/Creatinine Ratio 19.0 Glucose 100 Calcium 7.7 L Magnesium 2.0 LLE - dressing c/d/i, thigh soft, distally nvi. Assessment: 82 yo F pod 3 s/p LTHA Plan: pt - wbat lle with post hip precautions hold coumadin today plan home today with vns
[2018-07-17] MEDS: Ferrous Sulfate TAB* 325 MG PO SCH ×3 (08:26→19:48)
[2018-07-17] MEDS: Magnesium Hydroxide LIQ* 30 ML UDC PO SCH ×3 (08:26→19:48)
[2018-07-17] MEDS: Famotidine TAB* 20 MG PO SCH (08:26)
[2018-07-17] MEDS: Enalapril TAB* 5 MG PO SCH (08:26)
[2018-07-17] MEDS: Docusate CAP* 100 MG PO SCH ×3 (08:26→19:48)
[2018-07-17] MEDS: Magnesium Chloride EC TAB* 64 MG PO SCH (08:35)
--- NOTE | 2018-07-17 08:42 | DS ---
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 HISTORY OF PRESENT ILLNESS: Ms. Gonzales is an 82-year-old female with complaints of left hip pain secondary to end-stage osteoarthritis. She had failed conservative treatment and elected to proceed with a left total hip arthroplasty. HOSPITAL COURSE: Ms. Gonzales was admitted electively to the hospital on and underwent a left total hip arthroplasty. She tolerated the procedure well without complications. Postoperatively, she was placed on Lovenox and Coumadin for DVT prophylaxis. On postoperative day 1, her H and H was 11 and 31 and at the time of discharge on 07/17/18 her H and H was 8.4 and 25. Her INR was 3.39. She was afebrile and her vital signs were stable. She was discharged to home. DISCHARGE MEDICATIONS: 1. Coumadin 2 mg tabs. 2. Percocet 5/325 one to two every 4 to 6 hours. 3. Enalapril 5 mg daily. 4. Famotidine 40 mg daily. 5. Iron 325 daily. 6. Toprol 25 mg half a tab daily. 7. Vitamin B complex. 8. Vitamin D3. 9. Dulcolax as needed. PHYSICAL EXAMINATION UPON DISCHARGE: She was afebrile and her vital signs were stable. Her wound was clean and dry. She was ambulating with the aid of a walker. She had a 2+ dorsalis pedis pulse. Intact sensation in her lower extremity. Muscle group strengths are intact to 5/5. DISCHARGE INSTRUCTIONS: She was discharged home. She was given a prescription for Percocet 5/325 for pain to take 1 to 2 tabs every 4 to 6 hours. She was given Coumadin 2 mg tabs, was asked to hold her Coumadin through the weekend. VNS will recheck her INR on Friday. She was given Colace to take 2 to 3 tabs daily for constipation. She will follow up with Dr. Becerril in clinic in 2 weeks. At this time, she can shower, but she cannot take a bath. She is weightbearing as tolerated. We will see her in clinic in 2 weeks. NORMA PATTERSON [id number]/[facility] #: [id number] [facility]
--- NOTE | 2018-07-17 08:59 | PN ---
Subjective Date of Service: 07/17/18 Interval History: pt is planned to go home today. Feels well, denies SOB, post op pain controlled Objective Active Medications: Acetaminophen (Tylenol Tab*) 975 mg PO Q8HR [facility] Last Admin: 07/17/18 06:41 Dose: Not Given Bisacodyl (Dulcolax Supp*) 10 mg MT DAILY PRN PRN Reason: constipation Cyclobenzaprine HCl (Flexeril Tab*) 10 mg PO TID PRN PRN Reason: SPASMS Diphenhydramine HCl (Benadryl Iv*) 12.5 mg IV Q6H PRN PRN Reason: PRURITIS Docusate Sodium (Colace Cap*) 100 mg PO BID [facility] Last Admin: 07/16/18 21:55 Dose: 100 mg Enalapril Maleate (Vasotec Tab*) 5 mg PO DAILY [facility] Last Admin: 07/17/18 08:26 Dose: 5 mg Enoxaparin Sodium (Lovenox(*)) 30 mg SUBCUT Q24H [facility] Last Admin: 07/16/18 12:17 Dose: 30 mg Famotidine (Pepcid Tab*) 40 mg PO QAM [facility] Last Admin: 07/17/18 08:26 Dose: 40 mg Ferrous Sulfate (Ferrous Sulfate Tab*) 325 mg PO BID [facility] Last Admin: 07/16/18 21:55 Dose: 325 mg Hydralazine HCl (Apresoline Iv*) 5 mg IV SLOW PU Q6H PRN PRN Reason: BLOOD PRESSURE Lactulose (Lactulose*) 30 ml PO Q6H PRN PRN Reason: constipation Magnesium Chloride (Slow Mag Ec Tab*) 64 mg PO DAILY [facility] Last Admin: 07/17/18 08:35 Dose: 64 mg Magnesium Hydroxide (Milk Of Magnesia Liq*) 30 ml PO BID [facility] Last Admin: 07/16/18 21:55 Dose: 30 ml Magnesium Hydroxide (Milk Of Magnesia Liq*) 30 ml PO Q6H PRN PRN Reason: constipation Morphine Sulfate (Morphine Inj ((Syringe))*) 2 mg IV Q2H PRN PRN Reason: PAIN - SEVERE Last Admin: 07/16/18 04:32 Dose: 2 mg Oxycodone HCl (Roxycodone Tab*) 10 mg PO Q4H PRN PRN Reason: SEVERE PAIN Last Admin: 07/15/18 16:45 Dose: 10 mg Oxycodone/Acetaminophen (Percocet 5/325 Tab*) 1 tab PO Q4H PRN PRN Reason: PAIN Last Admin: 07/17/18 02:22 Dose: 1 tab Oxycodone/Acetaminophen (Percocet 5/325 Tab*) 2 tab PO Q4H PRN PRN Reason: PAIN Pharmacy Profile Note (Coumadin Daily Reminder*) 1 note FOLLOW UP 1700 [address] Last Admin: 07/16/18 17:05 Dose: 1 note Polyethylene Glycol/Electrolytes (Miralax*) 17 gm PO DAILY PRN PRN Reason: Constipation Vital Signs - 8 hr 07/17/18 07/17/18 07/17/18 01:05 02:22 04:02 Temperature 98.1 F 98.5 F Pulse Rate 73 73 Respiratory 16 16 18 Rate Blood Pressure 123/46 129/57 (mmHg) O2 Sat by Pulse 95 95 Oximetry 07/17/18 07/17/18 07/17/18 04:35 07:10 08:00 Temperature 98.3 F Pulse Rate 80 Respiratory 18 20 18 Rate Blood Pressure 129/62 (mmHg) O2 Sat by Pulse 95 Oximetry Oxygen Devices in Use Now: None Appearance: 82 yo F in nAD, aAOx3 Eyes: No Scleral Icterus, PERRLA Ears/Nose/Mouth/Throat: NL Teeth, Lips, Gums, Mucous Membranes Moist Neck: NL Appearance and Movements; NL JVP, Trachea Midline Respiratory: Symmetrical Chest Expansion and Respiratory Effort, Clear to Auscultation Cardiovascular: NL Sounds; No Murmurs; No JVD, RRR Abdominal: NL Sounds; No Tenderness; No Distention Lymphatic: No Cervical Adenopathy Extremities: No Edema, No Clubbing, Cyanosis Skin: No Nodules or Sclerosis, - - left post op hip-no edema, no hematoma Neurological: Alert and Oriented x 3, NL Muscle Strength and Tone Result Diagrams: 07/17/18 06:03 07/17/18 06:03 Microbiology and Other Data: Microbiology 07/14/18 21:28 Nasal Screen MRSA (PCR) - Final Nasal Mrsa Not Detected Diagnostic Imaging: CARDIAC ECHO The left ventricular chamber size is normal. Basal interventricular septum shows moderate thickening. Moderate concentric left ventricular hypertrophy is observed. The estimated ejection fraction is 55-60%. Abnormal left ventricular diastolic function is observed. Abnormal left ventricular diastolic filling is observed, consistent with impaired relaxation. The left atrium is moderate to severely dilated. There is a trace of aortic regurgitation. There is mild aortic stenosis. There is trace to mild mitral regurgitation. There is mild tricuspid regurgitation. No pulmonary hypertension is noted. There is a trace pulmonic regurgitation. There is mild dilatation of the ascending aorta. Assess/Plan/Problems-Billing Assessment: This is an 82 year old female with history of OA, atrial fibrillation, anxiety, HTN that presented for elective total hip arthroplasty and had post-operative run of V-tach that spontaneously terminated and was placed in ICU for close monitoring. 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 (2) Ventricular arrhythmia Comment: - Had run of vtach post-operatively that resolved - Magnesium noted to be low, was repleted - Patient states she has had afib in the past, but no other arrhytmia - ECHO as above - Has seen Dr. Cuellar before surgery for clearance, recommend follow up with him as an outpatient for event monitor if warranted. appreciate Dr. Welsh's consult - Pre-procedure stress was low risk per patient's report (3) Esophagitis Comment: - Has allergies to omeprazole and sucralfate - Continue pepcid daily -had symptoms of cough with meals and now on mech ground diet (4) Hypertension Comment: - Stable on enalapril (5) Postoperative anemia due to acute blood loss Comment: post op Hb down to 8.5, now at 8.4-stable, no evidence of hematoma. Hemodynamically stable (6) Anxiety Comment: - Mood stable (7) DVT prophylaxis Comment: Coumadin as per ortho Status and Disposition: plan for d/c as per ortho likely today
[2018-07-17] MEDS: Enoxaparin(*) 30 MG/0.3 ML SYR SUBCUT SCH (11:40)
--- NOTE | 2018-07-17 13:30 | CONS ---
CONSULTATION REPORT: DATE OF CONSULT: 07/17/18 REASON FOR CONSULT: Dysphagia, acute, with egg this morning. CONSULTING PHYSICIAN: Dr. Alexandre. HISTORY OF PRESENT ILLNESS: This is a very pleasant 82-year-old female who was admitted on 07/14/18 for a left total hip replacement. She had a good postop course until this morning when she was eatin g her eggs and she had difficulty swallowing. She is able to handle her secretions after an unknown length of time, maybe 30 to 45 minutes, this morning. She feels like the egg may have passed, but andrade s not had a rechallenge yet. She admits to chronic dysphagia at home, frequently have to regurgitate fluid and meals. She states that she had an upper endoscopy in 2017, but she cannot recall the resu lts. She has had dysphagia for quite a long period of time. She does not recall being dilated in e past. She denies any black or blood in the stool. No odynophagia. No weight loss or weight gain. No allergies or asthma. She has never had a colonoscopy in the past. She denies any diarrhea, con stipation, melena, or hematochezia and also denies any abdominal pain. At this time, she is comfortab le, able to handle her secretions. PAST MEDICAL HISTORY: Includes hypertension, depression, anxiety, atrial flutter, SVT, aortic stenos is, and a recent left total hip arthroplasty. PAST SURGICAL HISTORY: Hysterectomy, appendectomy, tonsillectomy, adenoidectomy, lymph node removal, and the recent left hip arthroplasty. MEDICATIONS: Current medications include: 1. Tylenol. 2. Bisacodyl. 3. Flexeril. 4. Benadryl. 5. Colace. 6. Vasotec. 7. Lovenox. 8. Pepcid. 9. Ferrous sulfate. 10. Hydralazine. 11. Lactulose. 12. Magnesium chloride. 13. Milk of magnesia. 14. Morphine. 15. Roxicodone. 16. Percocet. 20. MiraLAX. FAMILY HISTORY: No colon cancer or gastric cancer noted in the family. SOCIAL HISTORY: Lives alone. She does not smoke or use drugs. Rare alcohol use. REVIEW OF SYSTEMS: A complete 14-point review of systems was reviewed and negative except as describ ed in the history of present illness. PHYSICAL EXAM: Vital Signs: Blood pressure is 129/62, pulse is 80, respiratory rate of 20, 95% on r oom air, and 98.3 degrees temperature. In general, she is alert and oriented, well developed, well n ourished, not in acute distress. HEENT: Atraumatic, normocephalic. Conjunctivae are pink. Sclerae are anicteric. Neck is supple. No palpable lymphadenopathy. Pulmonary: Lungs are clear to auscult ation. Cardiovascular: Regular rate and rhythm. S1 and S2. Abdomen is soft, nontender, and nondist ended. Neurological: She is alert and oriented x3. Exam appears nonfocal. ASSESSMENT AND PLAN: This is an 82-year-old female with [id number] dysphagia. 1. Dysphagia, possible impaction this morning, appears to have cleared or she is handling her secret ions well. We will plan on upper endoscopy today to determine the etiology. Given her Lovenox use, no dilatation would be attempted today. 2. Acute blood loss anemia secondary to recent surgical intervention. 3. The patient has never had a screening colonoscopy. She can follow up in the office to discuss th is as an outpatient pending the results of her upper endoscopy. [id number]/[facility] #: [id number]
[2018-07-17] MEDS: Morphine INJ* 2 MG/ML 1 ML SYRINGE (TWO MG - NEW SYRINGE VERSION) IV PRN (15:20)
--- NOTE | 2018-07-17 17:50 | CONSULT ---
Consult Consult: GI follow up note Patient refusing endoscopic evaluation. Discussed possibility of retained food and still refusing. She understands the risks of not proceeding including retrained food, aspiration, morbidity and mortality. If willing she can follow up in office. Aldo Klein DO 07/17/18 [id number]
[2018-07-18] MEDS: oxyCODONE/Acetamin 5/325 MG* TAB PO PRN ×2 (04:20→08:18)
[2018-07-18 05:44] LABS: Hematocrit 24 % (35-47); Hemoglobin 7.9 g/dl (12.0-16.0); Mean Platelet Volume 7.9 um3 (7.4-10.4); Platelet Count 239 10^3/ul (150-450)
[2018-07-18 05:49] LABS: INR 3.35 (0.77-1.02)
[2018-07-18] MEDS: Acetaminophen TAB* 325 MG PO SCH ×2 (06:17→13:36)
[2018-07-18] MEDS: Magnesium Hydroxide LIQ* 30 ML UDC PO SCH (07:45)
[2018-07-18 07:59] VITALS: BP 155/70
[2018-07-18] MEDS: Docusate CAP* 100 MG PO SCH (08:18)
[2018-07-18] MEDS: Magnesium Chloride EC TAB* 64 MG PO SCH (08:18)
[2018-07-18] MEDS: Famotidine TAB* 20 MG PO SCH (08:18)
[2018-07-18] MEDS: Ferrous Sulfate TAB* 325 MG PO SCH (08:19)
[2018-07-18] MEDS: Enalapril TAB* 5 MG PO SCH (08:19)
--- NOTE | 2018-07-18 08:50 | PN ---
Progress Note - Progress Note Date of Service: 07/18/18 SOAP: Subjective: resting comfortably with no complaints Objective: Vital Signs Temp Pulse Resp BP Pulse Ox 98.9 F 82 18 155/70 98 07/18/18 07:34 07/18/18 07:34 07/18/18 08:18 07/18/18 07:34 07/18/18 07:34 Laboratory Last Values WBC 3.9 10^3/ul (3.5-10.8) 07/17/18 06:03 RBC 2.98 10^6/ul (4.00-5.40) L 07/17/18 06:03 Hgb 7.9 g/dl (12.0-16.0) L 07/18/18 05:13 Hct 24 % (35-47) L 07/18/18 05:13 MCV 82 fL (80-97) 07/17/18 06:03 MCH 28 pg (27-31) 07/17/18 06:03 MCHC 34 g/dl (31-36) 07/17/18 06:03 RDW 14 % (10.5-15) 07/17/18 06:03 Plt Count 239 10^3/ul (150-450) 07/18/18 05:13 MPV 7.9 um3 (7.4-10.4) 07/18/18 05:13 Neut % (Auto) 58.5 % (38-83) 07/17/18 06:03 Lymph % (Auto) 23.3 % (25-47) L 07/17/18 06:03 [place] % (Auto) 16.2 % (0-7) H 07/17/18 06:03 Eos % (Auto) 1.5 % (0-6) 07/17/18 06:03 Baso % (Auto) 0.5 % (0-2) 07/17/18 06:03 Absolute Neuts (auto) 2.3 10^3/ul (1.5-7.7) 07/17/18 06:03 Absolute Lymphs (auto) 0.9 10^3/ul (1.0-4.8) L 07/17/18 06:03 Absolute Monos (auto) 0.6 10^3/ul (0-0.8) 07/17/18 06:03 Absolute Eos (auto) 0.1 10^3/ul (0-0.6) 07/17/18 06:03 Absolute Basos (auto) 0 10^3/ul (0-0.2) 07/17/18 06:03 Absolute Nucleated RBC 0 10^3/ul 07/17/18 06:03 Nucleated RBC % 0 07/17/18 06:03 INR (Anticoag Therapy) 3.35 (0.77-1.02) H 07/18/18 05:12 Sodium 133 mmol/L (135-145) L 07/17/18 06:03 Potassium 3.9 mmol/L (3.5-5.0) 07/17/18 06:03 Chloride 103 mmol/L (101-111) 07/17/18 06:03 Carbon Dioxide 27 mmol/L (22-32) 07/17/18 06:03 Anion Gap 3 mmol/L (2-11) 07/17/18 06:03 BUN 11 mg/dL (6-24) 07/17/18 06:03 Creatinine 0.58 mg/dL (0.51-0.95) 07/17/18 06:03 Est GFR ( Amer) 120.4 (>60) 07/17/18 06:03 Est GFR (Non-Af Amer) 99.5 (>60) 07/17/18 06:03 BUN/Creatinine Ratio 19.0 (8-20) 07/17/18 06:03 Glucose 100 mg/dL (70-100) 07/17/18 06:03 Calcium 7.7 mg/dL (8.6-10.3) L 07/17/18 06:03 Magnesium 2.0 mg/dL (1.9-2.7) 07/17/18 06:03 Total Bilirubin 0.40 mg/dL (0.2-1.0) 07/14/18 20:31 AST 24 U/L (13-39) 07/14/18 20:31 ALT 13 U/L (7-52) 07/14/18 20:31 Alkaline Phosphatase 67 U/L (34-104) 07/14/18 20:31 Troponin I 0.01 ng/mL (<0.04) 07/15/18 05:19 Total Protein 6.1 g/dL (6.4-8.9) L 07/14/18 20:31 Albumin 3.2 g/dL (3.2-5.2) 07/14/18 20:31 Globulin 2.9 g/dL (2-4) 07/14/18 20:31 Albumin/Globulin Ratio 1.1 (1-3) 07/14/18 20:31 TSH 6.58 mcIU/mL (0.34-5.60) H 07/14/18 20:31 Free T4 0.91 ng/dL (0.61-1.12) 07/14/18 20:31 Thyroxine (T4) 9.04 mcg/mL (6.09-12.23) 07/14/18 20: Free T3 2.70 pg/mL (2.5-3.9) 07/14/18 20: Total T3 74 ng/dL (87-178) L 07/14/18 20:31 Urine Color Yellow 07/15/18 19:30 Urine Appearance Clear 07/15/18 19:30 Urine pH 5.0 (5-9) 07/15/18 19:30 Ur Specific [place] 1.015 (1.010-1.030) 07/15/18 19:30 Urine Protein Negative (Negative) 07/15/18 19:30 Urine Ketones Negative (Negative) 07/15/18 19:30 Urine Blood 2+ (Negative) A 07/15/18 19:30 Urine Nitrate Negative (Negative) 07/15/18 19:30 Urine Bilirubin Negative (Negative) 07/15/18 19:30 Urine Urobilinogen Negative (Negative) 07/15/18 19:30 Ur Leukocyte Esterase Negative (Negative) 07/15/18 19:30 Urine WBC (Auto) Trace(0-5/hpf) (Absent) 07/15/18 19:30 Urine RBC (Auto) 3+(>10/hpf) (Absent) A 07/15/18 19:30 Ur Squamous Epith Cells Present (Absent) A 07/15/18 19:30 Urine Bacteria Absent (Absent) 07/15/18 19:30 Hyaline Casts Present (Absent) A 07/15/18 19:30 Urine Glucose Negative (Negative) 07/15/18 19:30 incision: c/d/i PE:NVI Assessment: s/p left ERIBERTO Plan: 1) PT/OT-WBAT 2) home today; follow-up with lauryn in 2 weeks
--- NOTE | 2018-07-18 10:55 | DS ---
AMENDED REPORT NOW INCLUDES COSIGNER DESIGNATION - ESIGNED BEFORE ADJUSTMENT DISCHARGE SUMMARY: DATE OF ADMISSION: 07/14/18 DATE OF DISCHARGE: 07/18/18 SURGEON: Stefani Becerril MD * (DICTATED BY NORMA PATTERSON) PRINCIPAL DIAGNOSIS: Left hip arthritis. DISCHARGE DIAGNOSIS: Left hip arthritis. HISTORY OF PRESENT ILLNESS: Ms. Gonzales is an 82-year-old female with continued complaints of left hip pain. She has failed conservative management and elected to proceed with the left total hip arthroplasty. HOSPITAL COURSE: Ms. Gonzales was admitted electively to the hospital on and underwent a left total hip arthroplasty. She tolerated the procedure well without complications. Postoperatively, she was placed on Lovenox and Coumadin for DVT prophylaxis. Her hemoglobin and hematocrit remained stable throughout her hospital course. She remained afebrile and her vital signs were stable. She was discharged to home on 07/18/18. DISCHARGE MEDICATIONS: 1. Percocet 5/325 one to two tabs every 4 to 6 hours. 2. Coumadin 2 mg tabs. 3. Colace 100 mg tabs 2 to 3 times daily as needed for constipation. 4. Enalapril 5 mg daily. 5. Famotidine 40 mg daily. 6. Iron 325 daily. PHYSICAL EXAMINATION UPON DISCHARGE: The incision was clean, dry, and healing well. She was ambulating well with a walker and she was distally neurovascularly intact. DISCHARGE INSTRUCTIONS: She was discharged home. She was given a prescription for Percocet for pain, Colace for constipation, and Coumadin for DVT prophylaxis. Her INR at the time of discharge was 3.35. So, she was told to hold her Coumadin. She will not take any Coumadin over the weekend and [facility]NS will recheck her INR on Friday. She can start showering today. No baths, pools , or hot tubs, and she will follow up with Dr. Becerril in clinic in 2 weeks. NORMA PATTERSON [id number]/[facility] #: [id number] MTDD
[~2018-07-18 13:39] MED LIST changes: +Acetaminophen IV 1GM/100ML * 1,000 MG/100 ML VIAL IVPB ONE; -Acetaminophen TAB* 325 MG PO PRN; +Amiodarone 150 MG IVPREMIX* 150 MG/100 ML BAG IV ONE; +Bisacodyl SUPP* 10 MG SUPP PR PRN; +Cyclobenzaprine TAB* 10 MG PO PRN; -Cyclopentolate 1% OPTH.SOL* 2 ML BTL ONE; +Dexamethasone IV* 4 MG/ML 1 ML (4 MG) ONE; +EPHEDrine (Pressors)* 50 MG/ML VIAL ONE; +Famotidine IV* 10 MG/ML 2 ML (20 mg) ONE; +Glycopyrrolate IV* 0.2 MG/ML 1 ML VIAL ONE; +HYDROmorphone INJ* 1 MG/ML CARPUJECT SYRINGE IV PRN; +HYDROmorphone INJ1* 1 MG/ML SYRINGE ONE; -Ketorolac 0.5% OPHTH (NF) 0.5 % 5 ML BTL ONE; +Ketorolac INJ* 30 MG/ML 1 ML VIAL ONE; -Lidocaine 1% MPF* 2 ML VIAL ONE; +Lidocaine 2% PF * 5 ML VIAL ONE; +Magnesium Hydroxide LIQ* 30 ML UDC PO PRN; +Magnesium Sulfate 2 GM IV (Premix) IVPB ONE; +Magnesium Sulfate 2 GM IV* 2 GM/50 ML BAG IVPB ONE; +Magnesium Sulfate IV* 2 GM in NS 0.9% 100 ML* 100 ML IVPB ONE; +Morphine VIAL* 10 MG/ML 1 ML VIAL ONE; +NS 0.9% 1000 ML* 1,000 ML IV SCH; +NS 0.9% 500 ML* 500 ML IV ONE; +Naloxone* 0.4 MG/ML 1 ML VIAL IV PRN; -Neomycin/Polymy/Dex OPHTH.OIN* 3.5 GM ONE; +Neostigmine Methylsulfate* 1 MG/ML 10 ML VIAL (1 mg/ml) ONE; +Ondansetron INJ* 2 MG/ML VIAL IV ONE; +Ondansetron INJ* 2 MG/ML VIAL IV PRN; +Ondansetron INJ* 2 MG/ML VIAL ONE; +Ondansetron TAB* 4 MG PO PRN; -Phenylephr/Ketorolac 1%/0.3% OPH DROP BTL ONE; -Phenylephrine 2.5% OPTH.SOL* 2 ML BTL ONE; +Phenylephrine INJ* 10 MG/ML 1 ML VIAL (10 MG) ONE; +Polyethylene Glycol 3350* 17 GM PACKET PO PRN; +Potassium Chlor TAB* 20 MEQ TAB.ER PO ONE; +Potassium Chloride LIQUID* 20 MEQ PACKET ONE; +Potassium Chloride LIQUID* 20 MEQ PACKET PO ONE; +Propofol* 10 MG/ML 20 ML BTL IV PUSH ONE; +ROPIVACAINE 5 MG/ML 30 ML BTL (0.5%) ONE; +Rocuronium* 10 MG/ML VIAL ONE; +Succinylcholine* 20 MG/ML 10 ML VIAL ONE; -Tetracaine 0.5% OPTH.SOL 4 ML* 1 DROP BTL ONE; -Tropicamide 1% OPTH.SOL* BTL ONE; -Trypan Blue 0.06% SOL* 0.5 ML BTL ONE; +Warfarin TAB(*) 4 MG PO ONE; +Warfarin TAB(*) 6 MG PO ONE; +Warfarin TAB(*) 6 MG PO SCH; +ceFAZolin 2 GM PREMIX in ORs 2 GM/50 ML BAG IVPB ONE; +diPHENhydraMINE IV* 50 MG/ML 1 ml VIAL (BENADRYL) IV PRN; +guaiFENesin ER TAB 600 MG PO ONE; +hydrALAZINE IV* 20 MG/ML VIAL IV SLOW PU PRN; +oxyCODONE TAB* 5 MG TAB PO PRN; +oxyCODONE/Acetamin 5/325 MG* TAB PO PRN
== END | disposition home health service (06) | DRG 470 ==
LOC: AA 07-14 12:40 → ICU 07-14 21:20 → SSU 07-15 14:13
PROVIDERS: ADMIT Orthopaedic Surgery Adult Reconstructive Orthopaedic Surgery; ATTEND Orthopaedic Surgery Adult Reconstructive Orthopaedic Surgery
PROC: 0SRB02A Replacement of Left Hip Joint with Metal on Polyethylene Synthetic Substitute, Uncemented, Open Approach (ICD-10-PCS; principal; 2018-07-14 15:00)
DX: M16.12 Unilateral primary osteoarthritis, left hip (principal); I48.92 Unspecified atrial flutter; I47.1 Supraventricular tachycardia; I97.89 Other postprocedural complications and disorders of the circulatory system, not elsewhere classified; I47.2 Ventricular tachycardia; D62 Acute posthemorrhagic anemia; I10 Essential (primary) hypertension; F41.8 Other specified anxiety disorders; F42.9 Obsessive-compulsive disorder, unspecified; F50.9 Eating disorder, unspecified; R13.10 Dysphagia, unspecified; M85.862 Other specified disorders of bone density and structure, left lower leg; M21.852 Other specified acquired deformities of left thigh; M25.752 Osteophyte, left hip; E83.42 Hypomagnesemia; I35.0 Nonrheumatic aortic (valve) stenosis; E87.6 Hypokalemia; K20.9 Esophagitis, unspecified; Z79.82 Long term (current) use of aspirin; Z79.899 Other long term (current) drug therapy; Z88.8 Allergy status to other drugs, medicaments and biological substances; Z82.49 Family history of ischemic heart disease and other diseases of the circulatory system; Z80.3 Family history of malignant neoplasm of breast; Z80.42 Family history of malignant neoplasm of prostate
CPT/HCPCS: 36415; 72170; 80048; 80053; 81003; 81015; 83735; 84436; 84439; 84443; 84479; 84481; 84484; 85014; 85018; 85025; 85049; 85610; 87086; 87641; 88304; 88311; 93005; 93306; A9270-GY; G8978-GP-CI; G8978-GP-CJ; G8978-GP-CK; G8978-GP-CL; G8979-GP-CI; G8980-GP-CI; G8987-GO-CK; G8988-GO-CI; G8989-GO-CI; J0282; J0330; J0690; J1100; J1170; J1650; J1885; J2250; J2270; J2405; J2704; J2710; J2795; J3010; J3475

== ENCOUNTER → 2018-07-20 20:31 | Emergency (ER) | payer MEDICARE ==
[~2018-07-20 20:31] MED LIST changes: -Acetaminophen IV 1GM/100ML * 1,000 MG/100 ML VIAL IVPB ONE; -Amiodarone 150 MG IVPREMIX* 150 MG/100 ML BAG IV ONE; -Bisacodyl SUPP* 10 MG SUPP PR PRN; -Buffered Lidocaine 0.9% SYRIN* 5 ML/SYR SYRINGE INTRADERM ONE; -Cyclobenzaprine TAB* 10 MG PO PRN; -Dexamethasone IV* 4 MG/ML 1 ML (4 MG) ONE; +Diltiazem IV VIAL* 5 MG/ML 10 ML VIAL IV SLOW PU ONE; +Diltiazem IV* 5 MG/ML 5 ML VIAL (for loading dose/IV Push) (25 MG) IV SLOW PU ONE; +Diltiazem IV* 5 MG/ML 5 ML VIAL (for loading dose/IV Push) (25 MG) ONE; -EPHEDrine (Pressors)* 50 MG/ML VIAL ONE; -Famotidine IV* 10 MG/ML 2 ML (20 mg) ONE; -Glycopyrrolate IV* 0.2 MG/ML 1 ML VIAL ONE; -HYDROmorphone INJ* 1 MG/ML CARPUJECT SYRINGE IV PRN; -HYDROmorphone INJ1* 1 MG/ML SYRINGE ONE; -Ketorolac INJ* 30 MG/ML 1 ML VIAL ONE; -Lidocaine 2% PF * 5 ML VIAL ONE; -Magnesium Hydroxide LIQ* 30 ML UDC PO PRN; -Magnesium Sulfate 2 GM IV (Premix) IVPB ONE; -Magnesium Sulfate 2 GM IV* 2 GM/50 ML BAG IVPB ONE; -Magnesium Sulfate IV* 2 GM in NS 0.9% 100 ML* 100 ML IVPB ONE; -Midazolam* 1 MG/ML 2 ML VIAL (2 MG) ONE; -Morphine VIAL* 10 MG/ML 1 ML VIAL ONE; +NS 0.9% 1000 ML* 1,000 ML IV ONE; -NS 0.9% 1000 ML* 1,000 ML IV SCH; -NS 0.9% 500 ML* 500 ML IV ONE; -Naloxone* 0.4 MG/ML 1 ML VIAL IV PRN; -Neostigmine Methylsulfate* 1 MG/ML 10 ML VIAL (1 mg/ml) ONE; -Ondansetron INJ* 2 MG/ML VIAL IV PRN; -Ondansetron INJ* 2 MG/ML VIAL ONE; -Ondansetron TAB* 4 MG PO PRN; -Phenylephrine INJ* 10 MG/ML 1 ML VIAL (10 MG) ONE; -Polyethylene Glycol 3350* 17 GM PACKET PO PRN; -Potassium Chlor TAB* 20 MEQ TAB.ER PO ONE; -Potassium Chloride LIQUID* 20 MEQ PACKET ONE; -Potassium Chloride LIQUID* 20 MEQ PACKET PO ONE; -Propofol* 10 MG/ML 20 ML BTL IV PUSH ONE; -ROPIVACAINE 5 MG/ML 30 ML BTL (0.5%) ONE; -Rocuronium* 10 MG/ML VIAL ONE; -Succinylcholine* 20 MG/ML 10 ML VIAL ONE; -Warfarin TAB(*) 4 MG PO ONE; -Warfarin TAB(*) 6 MG PO ONE; -Warfarin TAB(*) 6 MG PO SCH; -ceFAZolin 2 GM PREMIX in ORs 2 GM/50 ML BAG IVPB ONE; -diPHENhydraMINE IV* 50 MG/ML 1 ml VIAL (BENADRYL) IV PRN; +fentaNYL* 50 MCG/ML 2 ML VIAL (100 MCG VIAL) IV SLOW PU ONE; -fentaNYL* 50 MCG/ML 2 ML VIAL (100 MCG VIAL) ONE; -guaiFENesin ER TAB 600 MG PO ONE; -hydrALAZINE IV* 20 MG/ML VIAL IV SLOW PU PRN; -oxyCODONE TAB* 5 MG TAB PO PRN; -oxyCODONE/Acetamin 5/325 MG* TAB PO PRN
--- OUTSIDE RECORDS SUMMARY | 2018-07-20 21:04 | XMS REPORT ---
:1935 External Reference #:[id number] Author Organization [employer] Address [address] [facility] [address] [place] [address] [place] [address] Phone [phone] Care Team Providers Name Role Phone Winston Meade DO Primary Care Physician Unavailable Payers Type Date Identification Numbers Payment Provider Subscriber Medicare Primary Policy Number: [id number] Medicare Steph Gonzales PayID: [id number] 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, UNILATERAL POST-TRAUMATIC OSTEOA Procedures Date CPT Code Description Status 06/29/2018 86878 EKG Tracing & Interpretation Completed 06/13/2017 16326 Stress Test Completed 06/13/2017 97139 Myocardial Perfusion Imaging Tomographic (Spect) Completed Multiple Studies 04/21/2017 84187 ECHO Transthoracic, Real-Time 2D With Doppler And Color Completed Flow 04/02/2017 45841 EKG Tracing & Interpretation Completed 06/10/2016 53268 EKG, Interpretation Only Completed Encounters Type Date Location Provider CPT E/M Dx Office Visit 06/29/2018 [facility] Adrien Cuellar, 84298 Z01.810 3:40p [facility] Office Visit 06/05/2018 [facility] Stefani Becerril M.D. 19482 M16.52 11:30a Of [facility] M25.552 Office Visit 01/23/2018 1:00p [facility] Stefani Becerril M.D. 13232 M16.52 C.[facility]ota M25.552 Office Visit 04/24/2017 2:00p [facility] Adrien Cuellar, 28456 Z01.810 [facility] Office Visit 04/02/2017 3:00p [facility] Adrien Cuellar, 10547 Z01.810 [facility] M16.52 D64.9 R94.31 R07.9 R06.02 I10 I11.9 R01.1 Office Visit 03/21/2017 1:15p [facility] Stefani Becerril M.D. 31891 M25.552 C.M.AKatherine M16.52 S72.002D Office Visit 09/20/2016 4:19p chioma Jimenez, 60462 K20.9 Mary [place] I10 R13.10 Office Visit 09/18/2016 4:16p Abeba Morris,chioma Saturnino Larson, 09306 K20.9 [facility] I10 R13.10 Office Visit 07/05/2016 1:00p [facility] [place] [address] S72.002A [facility] Office Visit 06/12/2016 2:47p [facility] Sandrine Mireles, 23403 K92.2 Assoc, Hospitalists Pushpa D50.0 I10 Office Visit 06/11/2016 2:46p [facility]oc, Alon Burtmelissa, 10058 K92.2 Hospitalists Pushpa D50.0 I10 Office Visit 06/10/2016 2:46p [facility] [place], [address] K92.2 Assoc, Hospitalists [facility]pa R94.31 D50.0 I10 Plan of Care Future Appointment(s):07/27/2018 2:45 pm - Stefani Becerril M.D. at [facility]07/01/2018 - Stefani Becerril M.D.M25.552 Pain in left hipFollow up:Follow up: 2 weeks after mbanfwaH51.12 Unilateral primary osteoarthritis, left hip
--- NOTE | 2018-07-20 21:37 | ED ---
Complex/Multi-Sys Presentation - HPI Summary HPI Summary: A 82 y/o female LEATHA presents to ED c/o nausea after recent left hip surgery. Additionally c/o of lower back pain due to side-effect of her prescribed medication. In the ED room, the patient has a pulse of 147 BPM, O2 saturation of 97% and blood pressure of 150/78. As per triage, pt here by EMS from home, recent left hip surgery but c/o nausea, EMS states on way here pts heart rate increased, pt denies chest pain/SOB". According to the patient, she recently had a left hip surgery. She is experiencing nausea, however, she denies vomiting (she would like to vomit, but cannot). Additionally she is experiencing side-effects of her lower back due to prescribed medication. Patients live alone. She was given anti-nausea medication in the hospital one time before and noted that she vomited and felt much better. Has not taken her blood thinner today. Patient has difficulty moving in stretcher. - History Of Current Complaint Chief Complaint: EDNauseaVomitDiarrh Time Seen by Provider: 07/20/18 20:43 Hx Obtained From: Patient Onset/Duration: Sudden Onset, Still Present Timing: Constant Location: Pain At: - Lower back Aggravating Factor(s): NOTHING Alleviating Factor(s): NOTHING Associated Signs And Symptoms: Positive: Nausea, Back Pain - Lower. Negative: Vomiting - Allergies/Home Medications Allergies/Adverse Reactions: Allergies Allergy/AdvReac Type Severity Reaction Status Date / Time omeprazole [From Prilosec] AdvReac Severe Difficulty Verified 07/20/18 20:52 Swallowing sucralfate [From Carafate] AdvReac Severe Shortness Verified 07/20/18 20:52 of Breath PMH/Surg Hx/FS Hx/Imm Hx Endocrine/Hematology History: Reports: Hx Anemia Denies: Hx Diabetes Cardiovascular History: Reports: Hx Cardiomegaly, Hx Hypertension - ON MEDS Comment Only: Hx Pacemaker/ICD - on meds Respiratory History: Reports: Other Respiratory Problems/Disorders Denies: Hx Chronic Obstructive Pulmonary Disease (COPD) GI History: Reports: Hx Gastroesophageal Reflux Disease - has occassional reflux with small amt of emesis, Hx Gastrointestinal Bleed Denies: Other GI Disorders - "nothing prior to this GI bleed" History: Reports: Other Problems/Disorders - hysterectomy Denies: Hx Dialysis, Hx Renal Disease Musculoskeletal History: Reports: Hx Arthritis - left hip, Other Musculoskeletal History - left hip fx Sensory History: Reports: Hx Cataracts, Hx Contacts or Glasses, Hx Hearing Problem - STEBBINS Denies: Hx Hearing Aid Opthamlomology History: Reports: Hx Cataracts, Hx Contacts or Glasses Neurological History: Denies: Other Neuro Impairments/Disorders Psychiatric History: Reports: Hx Anxiety, Hx Depression, Hx Schizophrenia - paranoia in the past - Surgical History Surgery Procedure, Year, and Place: hysterectomy 1979 appendectomy 1951 Hx Anesthesia Reactions: No Infectious Disease History: No Infectious Disease History: Denies: History Other Infectious Disease, Traveled Outside the [place] in Last 30 Days - Family History Known Family History: Positive: Other - Breast CA Family History: Positive for breast CA. - Social History Alcohol Use: Rare Alcohol Amount: holidays Hx Substance Use: No Substance Use Type: Reports: None Hx Tobacco Use: No Smoking Status (MU): Former Smoker Type: Cigarettes Amount Used/How Often: smoked for 10 years did not inhale Have You Smoked in the Last Year: No Review of Systems Negative: Fever Positive: Nausea. Negative: Vomiting Positive: Other - POSITIVE: Lower back pain All Other Systems Reviewed And Are Negative: Yes Physical Exam - Summary Physical Exam Summary: VITAL SIGNS: Reviewed. GENERAL: Patient is a well-developed and nourished female who is lying comfortable in the stretcher. Patient is not in any acute respiratory distress. HEAD AND FACE: No signs of trauma. No ecchymosis, hematomas or skull depressions. No sinus tenderness. EYES: PERRLA, EOMI x 2, No injected conjunctiva, no nystagmus. EARS: Hearing grossly intact. Ear canals and tympanic membranes are within normal limits. MOUTH: Oropharynx within normal limits. NECK: Supple, trachea is midline, no adenopathy, no JVD, no carotid bruit, no c- spine tenderness, neck with full ROM. CHEST: Symmetric, no tenderness at palpation LUNGS: Clear to auscultation bilaterally. No wheezing or crackles. CVS: S1 and S2 present, no murmurs or gallops appreciated. Patient is tachycardic. Tachycardia is irregular. ABDOMEN: Soft, non-tender. No signs of distention. No rebound no guarding, and no masses palpated. Bowel sounds are normal. EXTREMITIES: Left lower extremity swelling and ecchymosis. Scar over left hip with no signs of infection, healing well and no opening. NEURO: Alert and oriented x 3. No acute neurological deficits. Speech is normal and follows commands. SKIN: Dry and warm Triage Information Reviewed: Yes Vital Signs On Initial Exam: Initial Vitals Temp Pulse Resp BP Pulse Ox 98.6 F 130 18 131/86 97 07/20/18 20:52 07/20/18 20:52 07/20/18 20:52 07/20/18 20:52 07/20/18 20:52 Vital Signs Reviewed: Yes Diagnostics - Vital Signs Vital Signs Temp Pulse Resp BP Pulse Ox 07/20/18 20:52 98.6 F 130 18 131/86 97 - Laboratory Result Diagrams: 07/20/18 21:30 07/20/18 21:30 Lab Statement: Any lab studies that have been ordered have been reviewed, and results considered in the medical decision making process. - Ultrasound No standard instances Ultrasound Interpretation Completed By: Radiologist - No evidence of left lower extremity DVT. However, calf vessels could not be visualized due to skin edema. ED PHYSICIAN REVIEWED THIS RADIOLOGY REPORT. - EKG Cancel Cardiac Rate: NL - 69 BPM EKG Rhythm: Sinus Rhythm EKG Interpretation: Normal axis, normal interval, LVH, non-specific T-wave changes EKG Comparison: No Significant Change - 06/25/2018 2134 Cardiac Rate: Other Rate - 124 BPM EKG Rhythm: Atrial Fibrillation ST Segment: Non-Specific Ectopy: PVCs EKG Interpretation: LVH Cancel 2 Cardiac Rate: NL - 64 BPM EKG Rhythm: Sinus Rhythm EKG Interpretation: Patient converted to NSR spontaneously. LVH 2209 Cardiac Rate: NL - 64 BPM EKG Rhythm: Sinus Rhythm EKG Interpretation: Patient converted to NSR spontaneously. LVH Cancel Cardiac Rate: NL - 00 Re-Evaluation - Re-Evaluation First Eval Re-Evaluation Time: 22:09 Change: Improved Comment: Patient is feeling much better. Complex Multi-Symp Course/Dx Course Of Treatment: A 82 y/o female LEATHA presents to ED c/o nausea after recent left hip surgery. Additionally c/o of lower back pain due to side-effect of her prescribed medication. In the ED room, the patient has a pulse of 147 BPM , O2 saturation of 97% and blood pressure of 150/78. An EKG revealed. In the ED course, the patient received Cardizem, Diltiazem, Fentanyl, Zofran and IV fluids. Discharge - Discharge Plan Prescriptions: Ondansetron [Zofran Odt] 8 mg PO Q6H PRN #20 tab.rapdis PRN Reason: Nausea/Vomiting Referrals: Winston Meade DO [Primary Care Provider] - - Attestation Statements Document Initiated by Scribe: Yes Documenting Scribe: Aman Kamara Provider For Whom Scribe is Documenting (Include Credential): Beth Juarez MD Scribe Attestation: Aman Duncan, scribed for Beth Juarez MD on 07/21/18 at 0046.
[2018-07-20 21:40] LABS: ABS Basophils 0 10^3/ul (0-0.2); ABS Eosinophils 0.1 10^3/ul (0-0.6); ABS Monocytes 0.6 10^3/ul (0-0.8); ABS Neutrophils 4.6 10^3/ul (1.5-7.7); ABS Nucleated RBC 0 10^3/ul; Eosinophil % 0.8 % (0-6); Hematocrit 26 % (35-47); Hemoglobin 8.9 g/dl (12.0-16.0); Lymphocyte % 16.2 % (25-47); Mean Corpuscular HGB Conc 34 g/dl (31-36); Mean Corpuscular Hemoglobin 28 pg (27-31); Mean Corpuscular Volume 83 fL (80-97); Mean Platelet Volume 7.1 um3 (7.4-10.4); Nucleated Red Blood Cells % 0; Platelet Count 442 10^3/ul (150-450); Red Blood Count 3.16 10^6/ul (4.00-5.40); Red Cell Distribution Width 15 % (10.5-15); White Blood Count 6.3 10^3/ul (3.5-10.8)
[2018-07-20 21:48] LABS: INR 1.43 (0.77-1.02)
[2018-07-20 21:57] LABS: EGFR Non-African American 97.6 (>60)
--- NOTE | 2018-07-21 00:27 | RAD ---
EXAM: US Duplex Left Lower Extremity Veins CLINICAL HISTORY: 82 years old, female; Pain; Leg, upper and leg, lower; Left; Prior surgery; Surgery date: 3-7 days post-operative; Surgery type: Left total hip replacement 07/15/2018; Patient HX: Leg swelling; Additional info: Dvt TECHNIQUE: Real-time duplex ultrasound scan of the left lower extremity veins integrating B-mode two-dimensional vascular structure, Doppler spectral analysis, color flow Doppler imaging and compression. COMPARISON: No relevant prior studies available. FINDINGS: Limitations: The study was limited by surgical change and swelling above the knee. Calf vessels could not be visualized. Deep veins: Unremarkable. No DVT in the visualized common femoral, femoral, proximal deep femoral or popliteal veins. The veins demonstrate normal color flow, are normally compressible, with normal phasic flow and/or augmentation response. Superficial veins: Unremarkable. No thrombus in the visualized great saphenous vein. Soft tissues: Skin edema noted. No popliteal cyst. IMPRESSION: No evidence of left lower extremity DVT. However, calf vessels could not be visualized due to skin edema.
--- NOTE | 2018-07-21 00:55 | ED ---
Complex/Multi-Sys Presentation - HPI Summary HPI Summary: A 82 y/o female LEATHA presents to ED c/o nausea after recent left hip surgery. Additionally c/o of lower back pain due to side-effect of her prescribed medication. In the ED room, the patient has a pulse of 147 BPM, O2 saturation of 97% and blood pressure of 150/78. As per triage, pt here by EMS from home, recent left hip surgery but c/o nausea, EMS states on way here pts heart rate increased, pt denies chest pain/SOB". According to the patient, she recently had a left hip surgery. She is experiencing nausea, however, she denies SOB and vomiting (she would like to vomit, but cannot). Additionally she is experiencing side-effects of her lower back due to prescribed medication. Patients live alone. She was given anti-nausea medication in the hospital one time before and noted that she vomited and felt much better. Has not taken her blood thinner today. Patient has difficulty moving in stretcher. - History Of Current Complaint Chief Complaint: EDNauseaVomitDiarrh Time Seen by Provider: 07/20/18 20:43 Hx Obtained From: Patient Onset/Duration: Sudden Onset, Still Present Timing: Constant Location: Pain At: - Lower back Aggravating Factor(s): NOTHING Alleviating Factor(s): NOTHING Associated Signs And Symptoms: Positive: Nausea, Back Pain - LOWER BACK. Negative: Vomiting - Allergies/Home Medications Allergies/Adverse Reactions: Allergies Allergy/AdvReac Type Severity Reaction Status Date / Time omeprazole [From Prilosec] AdvReac Severe Difficulty Verified 07/20/18 20:52 Swallowing sucralfate [From Carafate] AdvReac Severe Shortness Verified 07/20/18 20:52 of Breath PMH/Surg Hx/FS Hx/Imm Hx Endocrine/Hematology History: Reports: Hx Anemia Denies: Hx Diabetes Cardiovascular History: Reports: Hx Cardiomegaly, Hx Hypertension - ON MEDS Comment Only: Hx Pacemaker/ICD - on meds Respiratory History: Reports: Other Respiratory Problems/Disorders Denies: Hx Chronic Obstructive Pulmonary Disease (COPD) GI History: Reports: Hx Gastroesophageal Reflux Disease - has occassional reflux with small amt of emesis, Hx Gastrointestinal Bleed Denies: Other GI Disorders - "nothing prior to this GI bleed" History: Reports: Other Problems/Disorders - hysterectomy Denies: Hx Dialysis, Hx Renal Disease Musculoskeletal History: Reports: Hx Arthritis - left hip, Other Musculoskeletal History - left hip fx Sensory History: Reports: Hx Cataracts, Hx Contacts or Glasses Opthamlomology History: Reports: Hx Cataracts, Hx Contacts or Glasses Neurological History: Denies: Other Neuro Impairments/Disorders Psychiatric History: Reports: Hx Anxiety, Hx Depression, Hx Schizophrenia - paranoia in the past - Surgical History Surgery Procedure, Year, and Place: hysterectomy 1979 appendectomy 1951 Hx Anesthesia Reactions: No Infectious Disease History: No Infectious Disease History: Denies: History Other Infectious Disease, Traveled Outside the [place] in Last 30 Days - Family History Known Family History: Positive: Other - Breast CA Family History: Positive for breast CA. - Social History Alcohol Use: Rare Alcohol Amount: holidays Hx Substance Use: No Substance Use Type: Reports: None Hx Tobacco Use: No Smoking Status (MU): Former Smoker Type: Cigarettes Amount Used/How Often: smoked for 10 years did not inhale Have You Smoked in the Last Year: No Review of Systems Negative: Fever Positive: Nausea. Negative: Vomiting Positive: Other - POSITIVE: Lower back pain All Other Systems Reviewed And Are Negative: Yes Physical Exam - Summary Physical Exam Summary: VITAL SIGNS: Reviewed. GENERAL: Patient is a well-developed and nourished female who is lying comfortable in the stretcher. Patient is not in any acute respiratory distress. HEAD AND FACE: No signs of trauma. No ecchymosis, hematomas or skull depressions. No sinus tenderness. EYES: PERRLA, EOMI x 2, No injected conjunctiva, no nystagmus. EARS: Hearing grossly intact. Ear canals and tympanic membranes are within normal limits. MOUTH: Oropharynx within normal limits. NECK: Supple, trachea is midline, no adenopathy, no JVD, no carotid bruit, no c- spine tenderness, neck with full ROM. CHEST: Symmetric, no tenderness at palpation LUNGS: Clear to auscultation bilaterally. No wheezing or crackles. CVS: S1 and S2 present, no murmurs or gallops appreciated. Patient is tachycardic. Tachycardia is irregular. ABDOMEN: Soft, non-tender. No signs of distention. No rebound no guarding, and no masses palpated. Bowel sounds are normal. EXTREMITIES: Left lower extremity swelling and ecchymosis. Scar over left hip with no signs of infection, healing well and no opening. NEURO: Alert and oriented x 3. No acute neurological deficits. Speech is normal and follows commands. SKIN: Dry and warm Triage Information Reviewed: Yes Vital Signs On Initial Exam: Initial Vitals Temp Pulse Resp BP Pulse Ox 98.6 F 130 18 131/86 97 07/20/18 20:52 07/20/18 20:52 07/20/18 20:52 07/20/18 20:52 07/20/18 20:52 Vital Signs Reviewed: Yes Diagnostics - Vital Signs Vital Signs Temp Pulse Resp BP Pulse Ox 07/21/18 00:21 71 7 100 07/21/18 00:12 67 16 139/68 100 07/21/18 00:00 68 18 99 07/20/18 23:43 68 17 135/69 99 07/20/18 23:12 67 16 153/75 98 07/20/18 23:00 74 21 07/20/18 22:49 71 15 133/70 100 07/20/18 22:47 69 16 133/70 98 07/20/18 22:12 67 19 122/70 95 07/20/18 22:11 120/86 07/20/18 22:00 62 20 95 07/20/18 21:43 126 20 120/86 97 07/20/18 21:41 18 07/20/18 21:13 122 43 150/78 97 07/20/18 21:12 132 19 96 07/20/18 20:52 98.6 F 130 18 131/86 97 - Laboratory Lab Results: Lab Results 07/20/18 07/20/18 07/20/18 Range/Units 21:30 21:30 21:30 WBC 6.3 (3.5-10.8) 10^3/ul RBC 3.16 L (4.00-5.40) 10^6/ul Hgb 8.9 L (12.0-16.0) g/dl Hct 26 L (35-47) % MCV 83 (80-97) fL MCH 28 (27-31) pg MCHC 34 (31-36) g/dl RDW 15 (10.5-15) % Plt Count 442 (150-450) 10^3/ul MPV 7.1 L (7.4-10.4) um3 Neut % (Auto) 73.2 (38-83) % Lymph % (Auto) 16.2 L (25-47) % Cass % (Auto) 9.3 H (0-7) % Eos % (Auto) 0.8 (0-6) % Baso % (Auto) 0.5 (0-2) % Absolute Neuts (auto) 4.6 (1.5-7.7) 10^3/ul Absolute Lymphs (auto) 1.0 (1.0-4.8) 10^3/ul Absolute Monos (auto) 0.6 (0-0.8) 10^3/ul Absolute Eos (auto) 0.1 (0-0.6) 10^3/ul Absolute Basos (auto) 0 (0-0.2) 10^3/ul Absolute Nucleated RBC 0 10^3/ul Nucleated RBC % 0 INR (Anticoag Therapy) 1.43 H (0.77-1.02) APTT 31.6 (26.0-36.3) seconds Sodium 135 (135-145) mmol/L Potassium 3.8 (3.5-5.0) mmol/L Chloride 100 L (101-111) mmol/L Carbon Dioxide 28 (22-32) mmol/L Anion Gap 7 (2-11) mmol/L BUN 13 (6-24) mg/dL Creatinine 0.59 (0.51-0.95) mg/dL Est GFR ( Amer) 118.1 (>60) Est GFR (Non-Af Amer) 97.6 (>60) BUN/Creatinine Ratio 22.0 H (8-20) Glucose 95 (70-100) mg/dL Lactic Acid (0.5-2.0) mmol/L Calcium 8.9 (8.6-10.3) mg/dL Magnesium 1.6 L (1.9-2.7) mg/dL Total Bilirubin 0.90 (0.2-1.0) mg/dL AST 20 (13-39) U/L ALT 12 (7-52) U/L Alkaline Phosphatase 67 (34-104) U/L Troponin I 0.07 H* (<0.04) ng/mL Total Protein 5.9 L (6.4-8.9) g/dL Albumin 2.8 L (3.2-5.2) g/dL Globulin 3.1 (2-4) g/dL Albumin/Globulin Ratio 0.9 L (1-3) TSH 5.72 H (0.34-5.60) mcIU/mL 07/20/18 Range/Units 21:30 WBC (3.5-10.8) 10^3/ul RBC (4.00-5.40) 10^6/ul Hgb (12.0-16.0) g/dl Hct (35-47) % MCV (80-97) fL MCH (27-31) pg MCHC (31-36) g/dl RDW (10.5-15) % Plt Count (150-450) 10^3/ul MPV (7.4-10.4) um3 Neut % (Auto) (38-83) % Lymph % (Auto) (25-47) % Cass % (Auto) (0-7) % Eos % (Auto) (0-6) % Baso % (Auto) (0-2) % Absolute Neuts (auto) (1.5-7.7) 10^3/ul Absolute Lymphs (auto) (1.0-4.8) 10^3/ul Absolute Monos (auto) (0-0.8) 10^3/ul Absolute Eos (auto) (0-0.6) 10^3/ul Absolute Basos (auto) (0-0.2) 10^3/ul Absolute Nucleated RBC 10^3/ul Nucleated RBC % INR (Anticoag Therapy) (0.77-1.02) APTT (26.0-36.3) seconds Sodium (135-145) mmol/L Potassium (3.5-5.0) mmol/L Chloride (101-111) mmol/L Carbon Dioxide (22-32) mmol/L Anion Gap (2-11) mmol/L BUN (6-24) mg/dL Creatinine (0.51-0.95) mg/dL Est GFR ( Amer) (>60) Est GFR (Non-Af Amer) (>60) BUN/Creatinine Ratio (8-20) Glucose (70-100) mg/dL Lactic Acid 0.8 (0.5-2.0) mmol/L Calcium (8.6-10.3) mg/dL Magnesium (1.9-2.7) mg/dL Total Bilirubin (0.2-1.0) mg/dL AST (13-39) U/L ALT (7-52) U/L Alkaline Phosphatase (34-104) U/L Troponin I (<0.04) ng/mL Total Protein (6.4-8.9) g/dL Albumin (3.2-5.2) g/dL Globulin (2-4) g/dL Albumin/Globulin Ratio (1-3) TSH (0.34-5.60) mcIU/mL Result Diagrams: 07/20/18 21:30 07/20/18 21:30 Lab Statement: Any lab studies that have been ordered have been reviewed, and results considered in the medical decision making process. - Radiology CXR Radiology Interpretation Completed By: ED Physician - No acute infiltrate. Pending official report. - Ultrasound No standard instances Ultrasound Interpretation Completed By: Radiologist - No evidence of left lower extremity DVT. However, calf vessels could not be visualized due to skin edema. ED PHYSICIAN REVIEWED THIS RADIOLOGY REPORT. - EKG 2305 Cardiac Rate: NL - 69 BPM EKG Rhythm: Sinus Rhythm EKG Interpretation: Normal axis, normal interval, LVH, non-specific T-wave changes EKG Comparison: No Significant Change - 06/25/2018 2200 Cardiac Rate: NL - 64 BPM EKG Rhythm: Sinus Rhythm EKG Interpretation: Patient converted to NSR spontaneously. LVH Cancel EKG Rhythm: Sinus Rhythm EKG Interpretation: Normal axis, normal interval, LVH, non-specific T-wave changes EKG Comparison: No Significant Change - 06/25/2018 2209 Cardiac Rate: NL - 64 BPM EKG Rhythm: Sinus Rhythm EKG Interpretation: Patient converted to NSR spontaneously. LVH HEY EKG Interpretation: Normal axis, normal interval, LVH, non-specific T-wave changes cancelss EKG Interpretation: Cancel Cancel 4 EKG Interpretation: Cancel Cancel 1 EKG Interpretation: Cancel 2207 Cardiac Rate: NL - 64 BPM EKG Rhythm: Sinus Rhythm EKG Interpretation: Patient converted to NSR spontaneously. LVH Re-Evaluation - Re-Evaluation First Eval Re-Evaluation Time: 22:09 Change: Improved Comment: Patient is feeling much better. Complex Multi-Symp Course/Dx Course Of Treatment: A 82 y/o female LEATHA presents to ED c/o nausea after recent left hip surgery. Additionally c/o of lower back pain due to side-effect of her prescribed medication. In the ED room, the patient has a pulse of 147 BPM , O2 saturation of 97% and blood pressure of 150/78. An EKG revealed a A-fib rate of 124 BPM, non-specific ST, PVC and LVH. Another EKG revealed an NSR of 64 BPM, LVH. Patient converted to NSR spontaneously. A CXR revealed no acute infiltrate. A Venous Dopper US revealed no evidence of left lower extremity DVT. However, calf vessels could not be visualized due to skin edema. In the ED course, the patient received Cardizem, Diltiazem, Fentanyl, Zofran and IV fluids. Patient has hx of paroxysmal afib. She came in ER with Afib which converted to NSR on her own. Patient is on Coumadin. Patient will be discharged with a diagnosis of paroxysmal afib and nausea. Patient will be sent home with Zofran. Patient is to follow up with PCP in 1-2 days. Patient is agreeable with this plan. - Diagnoses Provider Diagnoses: Paroxysmal A-fib, Nausea Discharge - Sign-Out/Discharge Documenting (check all that apply): Patient Departure - DISCHARGE - Discharge Plan Condition: Stable Disposition: HOME Prescriptions: Ondansetron [Zofran Odt] 8 mg PO Q6H PRN #20 tab.rapdis PRN Reason: Nausea/Vomiting Patient Education Materials: A-fib (Atrial Fibrillation) (ED), Acute Nausea and Vomiting in Children (ED) Referrals: Winston Meade DO [Primary Care Provider] - 2 Days Additional Instructions: FOLLOW UP WITH PRIMARY CARE IN 1-2 DAYS. TAKE MEDICATION PRESCRIBED. RETURN TO ED FOR ANY NEW OR WORSENING SYMPTOMS. - Attestation Statements Document Initiated by Scribe: Yes Documenting Scribe: Aman Kamara Provider For Whom Odette is Documenting (Include Credential): Beth Juarez MD Scribe Attestation: Aman Duncan, scribed for Beth Juarez MD on 07/21/18 at 0540.
[2018-07-21 01:52] VITALS: BP 126/66
--- NOTE | 2018-07-21 08:02 | RAD ---
INDICATION: Palpitations. COMPARISON: Comparison is made with a prior study from July 01, 2018. TECHNIQUE: A portable view of the chest was obtained. FINDINGS: The heart appears mildly enlarged and unchanged. The lungs are underinflated. There are linear densities at both lung bases suggestive of atelectasis. No pleural effusion or pneumothorax is seen. IMPRESSION: LOW LUNG VOLUMES, SMALL BIBASILAR INFILTRATES SUGGESTIVE OF ATELECTASIS. R0
== END | disposition home or self-care (01) ==
LOC: ED 20:31
DX: I48.0 Paroxysmal atrial fibrillation (principal); R11.0 Nausea; R60.0 Localized edema; I10 Essential (primary) hypertension; Z79.01 Long term (current) use of anticoagulants; Z79.899 Other long term (current) drug therapy; Z87.891 Personal history of nicotine dependence; Z88.8 Allergy status to other drugs, medicaments and biological substances
CPT/HCPCS: 36415; 71045; 80053; 83605; 83735; 84443; 84484; 85025; 85610; 85730; 93005; 96361; 96374; 96375; 96376; 99284; J2405; J3010; J3490

== ENCOUNTER 2021-01-01 18:24 | Inpatient (IN) ==
[2021-01-01] MEDS ORDERED: NS 0.9% 1000 ml BAG 1,000 ML IV ONE (19:28)
[2021-01-01 19:42] LABS: Hematocrit 23 % (35-47); Hemoglobin 6.9 g/dL (12.0-16.0); Mean Corpuscular HGB Conc 30 g/dL (31-36); Mean Corpuscular Hemoglobin 18 pg (27-31); Mean Corpuscular Volume 60 fL (80-97); Mean Platelet Volume 8.4 fL (7.4-10.4); Platelet Count 436 10^3/uL (150-450); Red Blood Count 3.83 10^6 /uL (3.70-4.87); Red Cell Distribution Width 19 % (10-15); White Blood Count 8.7 10^3/uL (3.5-10.8)
[2021-01-01 19:43] LABS: INR 1.29 (0.82-1.09)
[2021-01-01 19:53] LABS: ALT 14 U/L (7-52); AST 25 U/L (13-39); Alkaline Phosphatase 168 U/L (34-104); Amylase 105 U/L (29-103); Anion Gap 10 mmol/L (2-11); BUN/Creatinine Ratio 26.6 (8-20); Blood Urea Nitrogen 25 mg/dL (6-24); C Reactive Protein 84.87 mg/L (<8.01); CO2 Carbon Dioxide 25 mmol/L (22-32); Calcium 8.8 mg/dL (8.6-10.3); Chloride 102 mmol/L (101-111); EGFR African American 68.5 (>60); EGFR Non-African American 56.6 (>60); Globulin 2.9 g/dL (2-4); Glucose 100 mg/dL (70-100); Lipase 254 U/L (11.0-82.0); Potassium 3.6 mmol/L (3.5-5.0); Sodium 137 mmol/L (135-145); Total Protein 5.9 g/dL (6.4-8.9)
[2021-01-01 20:14] LABS: ABS Basophils 0.1 10^3/ul (0-0.2); ABS Eosinophils 0.1 10^3/ul (0-0.6); ABS Lymphocytes 0.6 10^3/ul (1.0-4.8); Lymphocyte % 6.8 %
[2021-01-01 21:24] LABS: Corrected Retic Count 1.1 % (0.5-1.5); Hematocrit for Retic CNT 23 % (35-47); Immature Retic Fraction 0.47; RBC Retic Count 3.87 10^6/uL (3.70-4.87)
[2021-01-01] MEDS ORDERED: diPHENhydraMINE 25 mg TAB PO ONE (22:05)
[2021-01-01] MEDS ORDERED: Polyethylene Glycol 3350 17 GM PACKET PO PRN (22:59)
[2021-01-01] MEDS ORDERED: NS 0.9% 1000 ml BAG 1,000 ML IV SCH (23:00)
[2021-01-01] MEDS ORDERED: Magnesium Hydroxide LIQ 30 ML UDC PO PRN (23:00)
[2021-01-02 00:27] LABS: Prealbumin 8 mg/dL (18-38); Total Iron Binding Capacity 259 mcg/dL (250-450); Transferrin 185 mg/dL (203-362)
[2021-01-02 00:31] LABS: % Iron Saturation 8 % (15-55); Iron < 20 ug/dL (50-212); Unsaturated Iron Binding < 244 ug/dL
[2021-01-02 00:48] LABS: Ferritin 133.5 ng/mL (11-307)
[2021-01-02 00:51] LABS: Folate > 20.00 ng/mL (>3.99)
[2021-01-02 00:52] LABS: Vitamin B12 > 1450 pg/mL (180-914)
[2021-01-02 01:19] LABS: Urine Appearance Cloudy; Urine Bilirubin Negative (Negative); Urine Blood 1+ (Negative); Urine Color Yellow; Urine Glucose Negative (Negative); Urine Ketones Trace (Negative); Urine Nitrite Negative (Negative); Urine Protein 1+(30 mg/dL) (Negative); Urine Specific Gravity 1.018 (1.010-1.030); Urine Urobilinogen Negative (Negative)
[2021-01-02 01:24] LABS: Urine Bacteria Absent (Absent); Urine Red Blood Cell Trace(0-2/hpf) (Absent); Urine Squamous Epithelial Cell Present (Absent); Urine White Blood Cell 2+(11-20/hpf) (Absent)
[2021-01-02] MEDS: Pantoprazole VIAL 40 MG VIAL IV SCH ×3 (04:50→22:05)
[2021-01-02] MEDS ORDERED: NS 0.9% 1000 ml BAG 1,000 ML IV SCH ×2 (05:15→15:30)
[2021-01-02] MEDS: cefTRIAXone 1 gm/50 mL NS BAG 1 GM/50 ML BAG IVPB SCH (05:58)
[2021-01-02 06:01] LABS: Calcium 8.1 mg/dL (8.6-10.3); EGFR Non-African American 59.5 (>60); Potassium 3.6 mmol/L (3.5-5.0)
[2021-01-02 06:12] LABS: ABS Lymphocytes 0.4 10^3/ul (1.0-4.8); ABS Monocytes 0.9 10^3/ul (0-0.8); ABS Neutrophils 9.2 10^3/ul (1.5-7.7); Eosinophil % 0.3 %; Hematocrit 27 % (35-47); Hemoglobin 8.5 g/dL (12.0-16.0); Lymphocyte % 3.6 %; Mean Corpuscular HGB Conc 32 g/dL (31-36); Mean Corpuscular Hemoglobin 21 pg (27-31); Mean Corpuscular Volume 66 fL (80-97); Mean Platelet Volume 8.6 fL (7.4-10.4); Platelet Count 370 10^3/uL (150-450); Red Blood Count 4.08 10^6 /uL (3.70-4.87); Red Cell Distribution Width 27 % (10-15); White Blood Count 10.5 10^3/uL (3.5-10.8)
[2021-01-02] MEDS: HYDROmorphone 0.5 MG/0.5 ML SYRINGE IV SLOW PU PRN ×4 (06:12→22:05)
[2021-01-02 06:13] LABS: Microcytosis 2+
[2021-01-02 06:14] LABS: Polychromasia 1+
[2021-01-02] MEDS ORDERED: Iron Sucrose 200 MG in NS 0.9% 100 ml BAG 100 ML IVPB ONE (07:51)
[2021-01-02] MEDS ORDERED: Iodixanol (CONTRAST) 320 MG/ML 100 ML SDV IV ONE (08:06)
[2021-01-02] MEDS ORDERED: Polyethylene Glycol 3350 17 GM PACKET PO ONE (15:30)
[2021-01-02] MEDS ORDERED: Magnesium Sulfate IV 1GM/100ML 1 GM/100 ML BAG IV ONE (15:41)
[2021-01-02] MEDS ORDERED: Heparin DRIP 25,000 UNITS BAG 25,000 UNITS/500 ML BAG IV SCH (15:45)
[2021-01-02] MEDS ORDERED: Polyethylene Glycol 3350 17 GM PACKET PO SCH (16:00)
[2021-01-02] MEDS ORDERED: Heparin 5000 UNITS/ML 1 mL VIAL IV SCH (16:00)
[2021-01-02 17:04] LABS: ABS Eosinophils 0.1 10^3/ul (0-0.6); ABS Lymphocytes 0.7 10^3/ul (1.0-4.8); ABS Neutrophils 7.6 10^3/ul (1.5-7.7); Hematocrit 29 % (35-47); Hemoglobin 8.9 g/dL (12.0-16.0); Lymphocyte % 7.1 %; Mean Corpuscular HGB Conc 31 g/dL (31-36); Mean Corpuscular Hemoglobin 21 pg (27-31); Mean Corpuscular Volume 66 fL (80-97); Mean Platelet Volume 8.3 fL (7.4-10.4); Nucleated Red Blood Cells % 0.2; Platelet Count 346 10^3/uL (150-450); Red Blood Count 4.33 10^6 /uL (3.70-4.87); Red Cell Distribution Width 26 % (10-15); White Blood Count 9.4 10^3/uL (3.5-10.8)
[2021-01-02 17:09] LABS: Blood Urea Nitrogen 26 mg/dL (6-24); EGFR Non-African American 59.5 (>60)
[2021-01-02 23:35] LABS: Carcinoembryonic Antigen > 987 ng/mL (0.1-5.0)
[2021-01-03] MEDS: cefTRIAXone 1 gm/50 mL NS BAG 1 GM/50 ML BAG IVPB SCH (04:37)
[2021-01-03 05:16] LABS: Activated Partial Thrombo Time 91.8 seconds (26.0-38.0)
[2021-01-03 05:20] LABS: ABS Basophils 0.1 10^3/ul (0-0.2); ABS Eosinophils 0.2 10^3/ul (0-0.6); ABS Lymphocytes 0.6 10^3/ul (1.0-4.8); ABS Monocytes 1.1 10^3/ul (0-0.8); ABS Neutrophils 7.6 10^3/ul (1.5-7.7); Eosinophil % 2.3 %; Hematocrit 25 % (35-47); Hemoglobin 7.9 g/dL (12.0-16.0); Lymphocyte % 5.9 %; Mean Corpuscular HGB Conc 31 g/dL (31-36); Mean Corpuscular Hemoglobin 21 pg (27-31); Mean Corpuscular Volume 66 fL (80-97); Mean Platelet Volume 8.4 fL (7.4-10.4); Nucleated Red Blood Cells % 0.2; Platelet Count 360 10^3/uL (150-450); Red Blood Count 3.84 10^6 /uL (3.70-4.87); Red Cell Distribution Width 27 % (10-15); White Blood Count 9.5 10^3/uL (3.5-10.8)
[2021-01-03] MEDS ORDERED: Iron Sucrose 200 MG in NS 0.9% 100 ml BAG 100 ML IVPB ONE (08:00)
[2021-01-03] MEDS: Pantoprazole VIAL 40 MG VIAL IV SCH ×2 (08:24→22:36)
[2021-01-03 09:51] LABS: INR 1.49 (0.82-1.09)
[2021-01-03] MEDS ORDERED: Midazolam 10 mg/10 ml VIAL 1 mg/ml 10 ml VIAL (10 mg) ONE (12:08)
[2021-01-03] MEDS ORDERED: fentaNYL 100 mcg/2 ml 50 MCG/ML VIAL ONE (12:08)
[2021-01-03] MEDS ORDERED: Heparin 5000 UNITS/ML 1 mL VIAL IV SCH (15:00)
[2021-01-03 15:48] LABS: Mean Platelet Volume 7.5 fL (7.4-10.4)
[2021-01-03 15:49] LABS: ABS Eosinophils 0.1 10^3/ul (0-0.6); ABS Lymphocytes 0.5 10^3/ul (1.0-4.8); Eosinophil % 1.1 %; Hematocrit 25 % (35-47); Hemoglobin 7.9 g/dL (12.0-16.0); Lymphocyte % 5.5 %; Mean Corpuscular HGB Conc 31 g/dL (31-36); Mean Corpuscular Hemoglobin 21 pg (27-31); Mean Corpuscular Volume 66 fL (80-97); Nucleated Red Blood Cells % 0.2; Platelet Count 370 10^3/uL (150-450); Red Blood Count 3.86 10^6 /uL (3.70-4.87); Red Cell Distribution Width 27 % (10-15); White Blood Count 8.5 10^3/uL (3.5-10.8)
[2021-01-03] MEDS: Heparin DRIP 25,000 UNITS BAG 25,000 UNITS/500 ML BAG IV SCH (16:30)
[2021-01-03 16:34] LABS: Microcytosis 3+
[2021-01-03] MEDS: HYDROmorphone 0.5 MG/0.5 ML SYRINGE IV SLOW PU PRN (22:37)
[2021-01-04 05:51] LABS: ABS Eosinophils 0.2 10^3/ul (0-0.6); ABS Lymphocytes 0.4 10^3/ul (1.0-4.8); ABS Monocytes 0.7 10^3/ul (0-0.8); ABS Neutrophils 5.7 10^3/ul (1.5-7.7); Eosinophil % 2.9 %; Hematocrit 24 % (35-47); Hemoglobin 7.4 g/dL (12.0-16.0); Lymphocyte % 6.2 %; Mean Corpuscular HGB Conc 32 g/dL (31-36); Mean Corpuscular Hemoglobin 21 pg (27-31); Mean Corpuscular Volume 65 fL (80-97); Mean Platelet Volume 7.3 fL (7.4-10.4); Nucleated Red Blood Cells % 0.2; Platelet Count 403 10^3/uL (150-450); Red Blood Count 3.62 10^6 /uL (3.70-4.87); Red Cell Distribution Width 27 % (10-15); White Blood Count 7.1 10^3/uL (3.5-10.8)
[2021-01-04 05:56] LABS: EGFR African American 76.9 (>60); EGFR Non-African American 63.6 (>60)
[2021-01-04 05:57] LABS: BUN/Creatinine Ratio 23.5 (8-20); Calcium 7.4 mg/dL (8.6-10.3); EGFR African American 76.9 (>60); EGFR Non-African American 63.6 (>60); Potassium 3.2 mmol/L (3.5-5.0)
[2021-01-04] MEDS ORDERED: Potassium Chloride LIQUID 20 MEQ/15 ML LIQUID PO ONE (07:42)
[2021-01-04] MEDS: KCL 20 MEQ/100 ML IVPREMIX 20 MEQ/100 ML BAG IV SCH ×3 (10:07→16:52)
[2021-01-04] MEDS: Pantoprazole VIAL 40 MG VIAL IV SCH ×2 (13:12→20:46)
[2021-01-04] MEDS: Heparin DRIP 25,000 UNITS BAG 25,000 UNITS/500 ML BAG IV SCH (13:18)
[2021-01-04] MEDS: HYDROmorphone 0.5 MG/0.5 ML SYRINGE IV SLOW PU PRN (23:49)
[2021-01-05 02:16] LABS: Hematocrit 23 % (35-47); Hemoglobin 7.2 g/dL (12.0-16.0); Mean Corpuscular HGB Conc 31 g/dL (31-36); Mean Corpuscular Hemoglobin 21 pg (27-31); Mean Corpuscular Volume 67 fL (80-97); Mean Platelet Volume 7.3 fL (7.4-10.4); Platelet Count 361 10^3/uL (150-450); Red Blood Count 3.46 10^6 /uL (3.70-4.87); Red Cell Distribution Width 27 % (10-15); White Blood Count 7.8 10^3/uL (3.5-10.8)
[2021-01-05 02:33] LABS: BUN/Creatinine Ratio 21.5 (8-20); Calcium 7.3 mg/dL (8.6-10.3); EGFR African American 83.7 (>60); EGFR Non-African American 69.2 (>60); Potassium 4.2 mmol/L (3.5-5.0)
[2021-01-05 02:44] LABS: ABS Basophils 0.1 10^3/ul (0-0.2); ABS Eosinophils 0.2 10^3/ul (0-0.6); ABS Lymphocytes 0.5 10^3/ul (1.0-4.8); ABS Monocytes 0.8 10^3/ul (0-0.8); ABS Neutrophils 6.2 10^3/ul (1.5-7.7); Eosinophil % 2.5 %; Microcytosis 2+; Nucleated Red Blood Cells % 0.2
[2021-01-05] MEDS ORDERED: Iron Sucrose 200 MG in NS 0.9% 100 ml BAG 100 ML IVPB ONE (09:00)
[2021-01-05] MEDS: HYDROmorphone 0.5 MG/0.5 ML SYRINGE IV SLOW PU PRN ×3 (10:25→23:34)
[2021-01-05] MEDS: Pantoprazole VIAL 40 MG VIAL IV SCH (10:26)
[2021-01-05] MEDS ORDERED: Morphine ORAL CONCENTRATE 5 MG/0.25 ML ORAL.SYRIN PO PRN (14:28)
[2021-01-06] MEDS: HYDROmorphone 0.5 MG/0.5 ML SYRINGE IV SLOW PU PRN ×2 (08:36→22:43)
[2021-01-06] MEDS: Al Hydrox/Mg Hydrox/Simet LIQ 30 ML UDC PO PRN ×2 (12:22→18:01)
[2021-01-07] MEDS: Al Hydrox/Mg Hydrox/Simet LIQ 30 ML UDC PO PRN (19:28)
[2021-01-08] MEDS: HYDROmorphone 0.5 MG/0.5 ML SYRINGE IV SLOW PU PRN (05:27)
[2021-01-08 06:22] VITALS: BP 133/67
== END 2021-01-08 14:35 | DRG 435 ==
LOC: ED 18:24 → MEDTELE 23:00
PROVIDERS: ADMIT Internal Medicine; ATTEND Internal Medicine